=== PATIENT | male | born 1990 | race African-American/Black ===

== ENCOUNTER 2023-12-04 00:18 | Emergency (ER) | payer OTHER, SELFPAY ==
[2023-12-04 00:15] VITALS: BP 155/93; PULSE 64; RESP 16; TEMP 37.2; O2SAT 97
--- NOTE | 2023-12-04 00:22 | ECG_ITS ---
Measurements Intervals [place] Rate: 63 P: 54 MS: 156 QRS: 44 QRSD: 101 T: 30 QT: 396 QTc: 408 Interpretive Statements SINUS RHYTHM NORMAL ECG NO PREVIOUS ECG AVAILABLE FOR COMPARISON Electronically Signed On 12-04-2023 9:48:18 CDT by Tito Villatoro D.O.
[2023-12-04 00:23] VITALS: PULSE 65
--- NOTE | 2023-12-04 00:44 | ED.GENADULT ---
HPI - General Adult General Chief complaint: Arrhythmia/Palpitations Stated complaint: increased heart rate Time Seen by Provider: 12/04/23 00:38 History of Present Illness HPI narrative: This is a 33-year-old male presenting ED with chief complaint of palpitations. Patient says that he was at home when he started to feel his heart racing. He developed a feeling that something was wrong. He felt tingling his hands and feet. He then called EMS by time they arrived his symptoms had resolved. Patient says this has happened once before years ago but was not as intense. patient denies recent illness, fevers, chest pain, difficulty breathing, abdominal pain, nausea vomiting or diarrhea. At this time he feels well and is ready to go home. Related Data Allergies Allergy/AdvReac Type Severity Reaction Status Date / Time No Known Allergies Allergy Verified 12/04/23 00:22 Exam Narrative: APPEARANCE: No apparent distress. Head: atraumatic. EYES: EOMI, NOSE: Atraumatic NECK: Trachea midline RESPIRATORY: No increased rate of breathing Clear to auscultation CARDIOVASCULAR: RRR, no peripheral edema ABDOMINAL: Non-distended MUSCULOSKELETAl: No obvious deformities NEURO: Alert. Moving 4/4 extremities SKIN:: Warm, dry. Normal color PSYCHIATRIC: anxious. Course Vital Signs Vital signs: Vital Signs Temperature 98.9 F 12/04/23 00:15 Pulse Rate 64 12/04/23 00:15 Respiratory Rate 16 12/04/23 00:15 Blood Pressure 155/93 H 12/04/23 00:15 Pulse Oximetry 97 12/04/23 00:15 Oxygen Delivery Room Air 12/04/23 00:15 Temperature 98.9 F 12/04/23 00:15 Pulse Rate 65 12/04/23 00:23 Respiratory Rate 16 12/04/23 00:15 Blood Pressure 155/93 H 12/04/23 00:15 Pulse Oximetry 97 12/04/23 00:15 Oxygen Delivery Room Air 12/04/23 00:15 Medical Decision Making [facility] Narrative Medical decision making narrative: -Course: 33-year-old male presenting with a brief episode palpitations and overwhelming dread. Symptoms consistent with panic attack. At this time the patient is asymptomatic. EKG is unremarkable. Patient is comfortable going home following up primary care physician. Given return precautions. -DDX includes but is not limited to: Panic attack anxiety , cardiac dysrhythmia -Co-morbidities complicating care: seizure disorder well controlled -Independent interpretation of studies: Independent EKG interpretation: Rhythm [sinus], Rate [63], Hunter -[normal], LA -[normal], QRS [narrow], QTC [normal], T waves -[negative for concerning inversions], ST Segments - [Negative for concerning elevations] Final interpretations: [Normal Sinus Rhythm] -Shared decision making / Disposition: discharged Vital Signs Vital Signs: Vital Signs Temperature 98.9 F 12/04/23 00:15 Pulse Rate 64 12/04/23 00:15 Respiratory Rate 16 12/04/23 00:15 Blood Pressure 155/93 H 12/04/23 00:15 Pulse Oximetry 97 12/04/23 00:15 Oxygen Delivery Room Air 12/04/23 00:15 Temperature 98.9 F 12/04/23 00:15 Pulse Rate 65 12/04/23 00:23 Respiratory Rate 16 12/04/23 00:15 Blood Pressure 155/93 H 12/04/23 00:15 Pulse Oximetry 97 12/04/23 00:15 Oxygen Delivery Room Air 12/04/23 00:15 Discharge Plan Discharge Clinical Impression: Panic attack Patient Disposition: Home, Self-Care Condition: Stable Instructions: Antibiotic Form, Panic Attack (ED) Additional Instructions: Please follow-up with primary care physician below. Return you develop chest pain shortness of breath or would like re-evaluation. Follow-up/Referrals: UNKNOWN,DOCTOR [Primary Care Provider] - Roman Tineo MD [Physician] - 1 Week (Establish pcp)
[2023-12-04 01:03] VITALS: BP 123/46; PULSE 94; RESP 15; O2SAT 96
== END 2023-12-04 01:05 | disposition home or self-care (01) ==
PROVIDERS: Emergency Provider Emergency Medicine
DX: F41.0 Panic disorder [episodic paroxysmal anxiety] (principal)
CPT/HCPCS: 93005; 99284

== ENCOUNTER 2024-01-09 20:21 | Emergency (ER) | payer OTHER, SELFPAY ==
--- NOTE | ~2024-01-09 | XR_ITS ---
EXAMINATION: XR chest 2V DATE: 01/09/2024 21:49 INDICATION: Chest pain with deep breath. Shortness of breath. TECHNIQUE: Frontal and lateral views of the chest were obtained. COMPARISON: None. FINDINGS: There is no pneumonia, pleural effusion, or pneumothorax. The heart size is normal. IMPRESSION: 1. No acute cardiopulmonary disease. Reviewed, dictated and finalized at location E.
--- NOTE | ~2024-01-09 | CT_ITS ---
Clinical Indication: Dyspnea, chest pain CT Scan of the Chest with Contrast: Technique: Contiguous sections were acquired throughout the chest after intravenous administration of 100 cc of Omnipaque 350. Dose reduction technique was used on this scan by utilizing automated expos ure control and iterative reconstruction technique. The dose-length product (DLP) was 976.19 mGy-cm. Findings: There is no evidence of any significant mediastinal, hilar or axillary lymphadenopathy. There is no f illing defect in the pulmonary arterial tree to suggest pulmonary embolus. There is no evidence of ao rtic dissection or aneurysm. There is no evidence of pleural or pericardial effusion. There are several mild patchy ground glass opacities in the right lower lobe. Images through the upper abdomen reveal no abnormalities. Impression: No evidence of pulmonary embolus, aortic dissection, or aortic aneurysm. Mild patchy ground glass opacity right lower lobe, most likely infectious process. Reviewed, dictated and finalized at [facility]. Impression: No evidence of pulmonary embolus, aortic dissection, or aortic aneurysm. Mild patchy ground glass opacity right lower lobe, most likely infectious proce ss.
[2024-01-09 20:54] VITALS: BP 173/99; PULSE 108; RESP 18; TEMP 36.7; O2SAT 94
--- NOTE | 2024-01-09 20:58 | ECG_ITS ---
SEE SCANNED COPY FOR CONFIRMED REPORT MTDD
[2024-01-09 21:38] LABS: Basophils Absolute Auto 0.1 K/mm3 (0.0-0.1); Basophils Percent Auto 1.1 % (0.2-1.2); Eosinophils Absolute Auto 0.8 K/mm3 (0-0.3); Eosinophils Percent Auto 8.8 % (0-4.4); Hematocrit 48.9 % (42.0-52.0); Hemoglobin 17.3 g/dL (14.0-18.0); Immature Granulocyte Absolute 0.05 K/mm3 (0.00-0.031); Immature Granulocyte Percent A 0.5 % (0-0.5); Lymphocytes Absolute Auto 2.03 K/mm3 (0.9-3.2); Mean Corpuscular HGB Conc 35.4 g/dl (32-36); Mean Corpuscular Hemoglobin 27.9 pg (26-34); Mean Platelet Volume 10.3 fl (7.4-10.4); Monocytes Absolute Auto 0.8 K/mm3 (0.1-0.6); Monocytes Percent Auto 8.7 % (2.6-8.5); Neutrophils Absolute Auto 5.4 K/mm3 (1.3-6.7); Neutrophils Percent Auto 58.9 % (45.5-73.1); Platelet Count Result 275 k/mm3 (150-375); Red Blood Count 6.19 M/mm3 (4.6-6.20); Red Cell Distribution Width 14.8 % (11.5-14.5); White Blood Count 9.2 K/mm3 (4.5-10.0)
[2024-01-09 21:48] LABS: Alanine Aminotransferase 62 U/L (6-50); Albumin Level 4.7 g/dL (3.5-5.1); Alkaline Phosphatase 60 U/L (38-126); Anion Gap 11 mmol/L (4-12); Aspartate Amino Transferase 56 U/L (17-59); Bilirubin,Total 0.6 mg/dL (0.2-1.3); Blood Urea Nitrogen 14 mg/dL (9-20); Calcium 9.5 mg/dL (8.4-10.2); Carbon Dioxide 23 mmol/L (22-30); Chloride 107 mmol/L (98-107); Estimated CRCL calculation 112 ml/min; Estimated Glomerular Filt Rate > 60; Glucose 128 mg/dL (65-110); Lipase 316 U/L (23-300); Potassium 3.9 mmol/L (3.4-5.0); Sodium 141 mmol/L (137-145)
[2024-01-09 21:55] LABS: Prothrombin Time 13.5 Seconds (11.1-14.7)
[2024-01-09 22:04] LABS: Troponin I 0.035 ng/mL (0.000-0.034)
[2024-01-09 23:48] LABS: D Dimer < 0.27 ug/mL (<0.48)
--- NOTE | 2024-01-09 23:54 | ED.SOB ---
HPI - SOB/Dyspnea General Chief Complaint: Shortness of Breath/Dyspnea <Sherry Ortega PA-C - Last Filed: 01/10/24 02:27> Stated Complaint: sob and cp with inhalation <MELISSA Mcmanus Last Filed: 01/10/24 02:27> Time Seen by Provider: 01/09/24 23:43 <MELISSA Mcmanus Last Filed: 01/10/24 02:27> History of Present Illness HPI Narrative: 33-year-old male with reported history of childhood asthma, hypertension and seizure disorder presents to emergency department for shortness of breath and URI symptoms that started today. Patient is reporting rhinorrhea, nasal congestion, productive cough and difficulty breathing. He is reporting pleuritic central chest pain. Denies recent surgeries or hospitalizations, lower extremity edema or calf pain, history of VTE, fever, nausea vomiting, diarrhea, otalgia or sore throat, dysuria or hematuria. <Sherry Ortega PA-C - Last Filed: 01/10/24 02:27> Related Data Allergies/Adverse Reactions: Allergies Allergy/AdvReac Type Severity Reaction Status Date / Time No Known Allergies Allergy Verified 12/04/23 00:22 <MELISSA Mcmanus Last Filed: 01/10/24 02:27> Review of Systems Review of Systems: CONSTITUTIONAL: Denies fever, chills, or sweats. EYES: Denies visual changes, redness, or discharge. ENT: See HPI CARDIOVASCULAR: See HPI RESPIRATORY: See HPI GASTROINTESTINAL: Denies abdominal pain, nausea, vomiting, or diarrhea. GENITOURINARY: Denies dysuria or hematuria. SKIN: Denies rash or itching. MUSCULOSKELETAL: Denies back pain, joint pain, or myalgia. NEUROLOGIC: Denies headache, numbness, or weakness. PSYCHIATRIC: Denies anxiety or depression. <MELISSA Mcmanus Last Filed: 01/10/24 02:27> Exam Narrative: GENERAL: Well-appearing, well-nourished, and in no acute distress. HEAD: Normocephalic, atraumatic. EYES: PERRLA and EOMI. ENT: Bilateral nares congested with clear rhinorrhea. Posterior pharynx without erythema or edema. No tonsillar hypertrophy. Uvula is midline. Bilateral TMs are rivas nonbulging with normal canals. NECK: Supple. CHEST: No respiratory distress, patient is satting 94% on room air. There is expiratory wheezing throughout all shafer. HEART: Regular rate and rhythm. No murmur heard. Normal peripheral pulses. ABDOMEN: Soft, nontender, nondistended, normal active bowel sounds. EXTREMITIES: Normal range of motion. No edema. Negative Homans bilaterally. SKIN: Warm, dry, no rash. NEURO: No focal deficits. 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 <Isha Oleary MD - Last Filed: 01/10/24 08:17> Vital Signs Vital signs: Vital Signs Temperature 98.0 F 01/09/24 20:54 Pulse Rate 108 H 01/09/24 20:54 Respiratory Rate 18 01/09/24 20:54 Blood Pressure 173/99 H 01/09/24 20:54 Pulse Oximetry 94 01/09/24 20:54 Oxygen Delivery Room Air 01/09/24 20:54 Temperature 98.0 F 01/09/24 20:54 Pulse Rate 74 01/10/24 03:02 Respiratory Rate 18 01/10/24 03:02 Blood Pressure 142/82 H 01/10/24 03:02 Pulse Oximetry 95 01/10/24 03:02 Oxygen Delivery Room Air 01/10/24 00:20 <Sherry Ortega PA-C - Last Filed: 01/10/24 02:27> Vital Signs Temperature 98.0 F 01/09/24 20:54 Pulse Rate 108 H 01/09/24 20:54 Respiratory Rate 18 01/09/24 20:54 Blood Pressure 173/99 H 01/09/24 20:54 Pulse Oximetry 94 01/09/24 20:54 Oxygen Delivery Room Air 01/09/24 20:54 Temperature 98.0 F 01/09/24 20:54 Pulse Rate 74 01/10/24 03:02 Respiratory Rate 18 01/10/24 03:02 Blood Pressure 142/82 H 01/10/24 03:02 Pulse Oximetry 95 01/10/24 03:02 Oxygen Delivery Room Air 01/10/24 00:20 <Isha Oleary MD - Last Filed: 01/10/24 08:17> MDM - SOB/Dyspnea MDM Narr
[2024-01-10] VITALS (11 sets, daily range): BP systolic 132–159; BP diastolic 75–103; PULSE 74–107; RESP 18–20; O2SAT 91–95
[2024-01-10] MEDS: IPRATROPIUM 0.5 MG/ALBUTEROL SULFATE 2.5 MG AMPUL.NEB 3 ML INHALATION (00:11)
[2024-01-10] MEDS: ASPIRIN 81 MG CHEWABLE TABLET 324 MG PO (00:18)
[2024-01-10 00:47] LABS: Troponin I 0.037 ng/mL (0.000-0.034)
[2024-01-10 00:48] LABS: Influenza A QL RT-PCR Negative (Negative); Influenza B QL RT-PCR Negative (Negative); RSV RNA, RT-PCR Negative (Negative); SARS-CoV-2 RNA PCR Negative (Negative)
[2024-01-10] MEDS: methylPREDNISolone SOD SUCC 125 MG VIAL IV PUSH (03:12)
[2024-01-10] MEDS: AZITHROMYCIN 250 MG TABLET 500 MG PO (03:12)
[2024-01-10] MEDS: AMOXICILLIN/CLAVULANATE K 875-125 MG TAB 1 TABLET PO (03:12)
== END 2024-01-10 03:20 | disposition home or self-care (01) ==
PROVIDERS: Emergency Medicine; Emergency Provider Physician Assistant
DX: J18.9 Pneumonia, unspecified organism (principal); J45.901 Unspecified asthma with (acute) exacerbation; Z20.822 Contact with and (suspected) exposure to COVID-19; I10 Essential (primary) hypertension; G40.909 Epilepsy, unspecified, not intractable, without status epilepticus; R00.0 Tachycardia, unspecified; R94.31 Abnormal electrocardiogram [ECG] [EKG]
CPT/HCPCS: 36415; 71046; 71275; 80053; 83690; 84484; 85025; 85380; 85610; 85730; 87637; 93005; 94640; 96374; 99284; A9270; J2919; Q9967

== ENCOUNTER 2024-01-19 12:07 | Emergency (ER) | payer OTHER, SELFPAY ==
--- NOTE | ~2024-01-19 | XR_ITS ---
EXAMINATION: XR shoulder RT min 2V DATE: 01/19/2024 14:46 INDICATION: Right shoulder pain. TECHNIQUE: 5 views of right shoulder were obtained. COMPARISON: None. FINDINGS: Bone alignment is normal. No fracture. There is severe osteoarthritis of glenohumeral joint and mild osteoarthritis of acromioclavicular joint. IMPRESSION: 1. Severe glenohumeral joint osteoarthritis. Reviewed, dictated and finalized at location E.
[2024-01-19 12:18] VITALS: BP 167/103; PULSE 96; RESP 18; TEMP 36.4; O2SAT 99
--- NOTE | 2024-01-19 14:03 | ED.SEIZURE ---
HPI - Seizure General Chief Complaint: Seizure Stated Complaint: I had a seizure last night Time Seen by Provider: 01/19/24 13:44 History of Present Illness HPI Narrative: Patient is a 34-year-old male with history of hypertension, seizures, takes Keppra here after concerns for a seizure overnight last night. Patient states that he woke up this morning with some pain in his right shoulder as well as the feeling as though he bit his tongue overnight. Denies bowel or bladder incontinence. He notes a long history of seizures, is supposed to be taking Keppra, believes it is 500 mg daily. Typically they always occur in his sleep. He spoke with his primary care doctor this morning who advised to come into the emergency department for further evaluation and to be cleared to be returned to work. Patient notes that he has not taken his Keppra in about 2 weeks because he was prescribed antibiotics for pneumonia and the combination of the 2 medications made him ?feel weird ?. He typically has a seizure maybe once a year, however he believes his last seizure was approximately 4 years ago. He denies falling out of bed, any trauma. Related Data Allergies Allergy/AdvReac Type Severity Reaction Status Date / Time No Known Allergies Allergy Verified 01/19/24 12:07 Review of Systems Review of Systems: All systems reviewed & are unremarkable except as noted in HPI and below Exam Narrative: GENERAL: Well-appearing, well-nourished, and in no acute distress. HEAD: Normocephalic, atraumatic. EYES: PERRLA and EOMI. ENT: Nares clear. Mucous membranes moist. Bruising noted to bilateral tongue consistent with tongue biting, no laceration appreciated. NECK: Supple. CHEST: Clear to auscultation. No respiratory distress. HEART: Regular rate and rhythm. Normal peripheral pulses. ABDOMEN: Soft, nontender, nondistended. EXTREMITIES: Tenderness to the anterior right shoulder with mild decreased abduction beyond 90?. Obvious deformity, normal sensation throughout arm with a strong radial pulse. SKIN: Warm, dry, no rash. NEURO: No focal deficits. Alert and oriented x3. PSYCH: Normal mood and affect. Course Course Emergency Course: Chart review performed. Patient here after having a seizure in his sleep last night. History of seizures. Triage vitals show HTN, otherwise normal. No prior visits for seizures in our system. Patient seen evaluated, concern for possible seizure overnight in his sleep, no associated trauma, will do x-ray to ensure he did not have a dislocation injury during the seizure. He did not follow bed. I suspect his seizure likely due to medication non adherence of his Keppra as he has not taken in 2 weeks. Will do basic lab work, x-ray of shoulder, touch base with his primary care doctor regarding return for work precautions. Lab work and imaging reviewed. Workup grossly unremarkable. Spoke with Dr. Tineo, due to seizure he feels uncomfortable releasing him to work, requesting neurology to release him to work. Advised we do not have neurology on our schedule today to even discuss the case with. Will give patient referral to neurology outpatient for evaluation and clearance for return to work. The results of pertinent diagnostic studies and exam findings were discussed. The patient?s provisional diagnosis and plan of care were discussed with the patient and present family. The patient and/or present family expressed understanding of the diagnosis and plan. The nurse was instructed to provide written instructions and appropriate follow-up information. The patient understands their need and responsibility to obtain additional follow-up as instructed. The risks of medications administered and prescribed were discussed with the patient and family present. Vital Signs Vital signs: Vital Signs Temperature 97.6 F 01/19/24 12:18 Pulse Rate 96 01/19/24 12:18 Respiratory Rate 18 01/19/24 12:18 Blood Pressure 167/103 H 01/19/24 12:18 Pul
--- NOTE | 2024-01-19 14:04 | ECG_ITS ---
SEE SCANNED COPY FOR CONFIRMED REPORT MTDD
[2024-01-19 14:45] LABS: Basophils Percent Auto 0.4 % (0.2-1.2); Eosinophils Absolute Auto 0.1 K/mm3 (0-0.3); Eosinophils Percent Auto 0.7 % (0-4.4); Hematocrit 50.3 % (42.0-52.0); Hemoglobin 17.7 g/dL (14.0-18.0); Immature Granulocyte Absolute 0.14 K/mm3 (0.00-0.031); Immature Granulocyte Percent A 1.3 % (0-0.5); Lymphocytes Absolute Auto 1.79 K/mm3 (0.9-3.2); Lymphocytes Percent Auto 16.7 % (18.3-44.2); Mean Corpuscular HGB Conc 35.2 g/dl (32-36); Mean Corpuscular Hemoglobin 27.9 pg (26-34); Mean Corpuscular Volume 79.3 fl (80-100); Mean Platelet Volume 9.6 fl (7.4-10.4); Monocytes Absolute Auto 0.8 K/mm3 (0.1-0.6); Monocytes Percent Auto 7.7 % (2.6-8.5); Neutrophils Absolute Auto 7.9 K/mm3 (1.3-6.7); Neutrophils Percent Auto 73.2 % (45.5-73.1); Platelet Count Result 272 k/mm3 (150-375); Red Blood Count 6.34 M/mm3 (4.6-6.20); White Blood Count 10.8 K/mm3 (4.5-10.0)
[2024-01-19] MEDS: levETIRAcetam 500 MG TABLET PO (15:00)
[2024-01-19 15:01] LABS: Alanine Aminotransferase 73 U/L (6-50); Albumin Level 4.7 g/dL (3.5-5.1); Alkaline Phosphatase 73 U/L (38-126); Anion Gap 8 mmol/L (4-12); Aspartate Amino Transferase 60 U/L (17-59); Blood Urea Nitrogen 11 mg/dL (9-20); Calcium 9.2 mg/dL (8.4-10.2); Carbon Dioxide 27 mmol/L (22-30); Chloride 102 mmol/L (98-107); Estimated CRCL calculation 122 ml/min; Estimated Glomerular Filt Rate > 60; Glucose 92 mg/dL (65-110); Potassium 4.2 mmol/L (3.4-5.0); Sodium 137 mmol/L (137-145)
[2024-01-19 15:30] VITALS: BP 159/89; PULSE 88; RESP 16; O2SAT 98
== END 2024-01-19 16:13 | disposition home or self-care (01) ==
PROVIDERS: Emergency Provider Student in an Organized Health Care Education/Training Program
DX: G40.909 Epilepsy, unspecified, not intractable, without status epilepticus (principal); S49.91XA Unspecified injury of right shoulder and upper arm, initial encounter; T42.6X6A Underdosing of other antiepileptic and sedative-hypnotic drugs, initial encounter; Z91.128 Patient's intentional underdosing of medication regimen for other reason; I10 Essential (primary) hypertension; X58.XXXA Exposure to other specified factors, initial encounter
CPT/HCPCS: 36415; 73030; 80053; 85025; 93005; 99283; A9270

== ENCOUNTER 2024-02-26 01:23 | Emergency (ER) | payer SELFPAY ==
[2024-02-26] VITALS (32 sets, daily range): BP systolic 130–155; BP diastolic 80–97; PULSE 68–111; RESP 11–26; TEMP 36.6; O2SAT 93–100
--- NOTE | ~2024-02-26 | XR_ITS ---
EXAMINATION: XR chest 1V portable 02/26/2024 01:59 INDICATION: Chest pain. Rapid heart rate. PROCEDURE: AP portable chest COMPARISON: 01/09/2024 FINDINGS: The lungs are clear. The cardiomediastinal silhouette is within normal limits. There are no pleural effusions. There is no pneumothorax suspected. IMPRESSION: 1: NO ACUTE CARDIOPULMONARY DISEASE. Reviewed, dictated and finalized at location B.
--- NOTE | 2024-02-26 01:24 | ECG_ITS ---
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 Measurements Intervals [place] Rate: 75 P: 58 FL: 150 QRS: 51 QRSD: 92 T: 32 QT: 364 QTc: 408 Interpretive Statements SINUS RHYTHM No previous ECG available for comparison Electronically Signed On 02-26-2024 12:08:01 CDT by Ericka Lyon M.D.
[2024-02-26 01:39] LABS: Basophils Absolute Auto 0.1 K/mm3 (0.0-0.1); Basophils Percent Auto 0.6 % (0.2-1.2); Eosinophils Absolute Auto 0.7 K/mm3 (0-0.3); Eosinophils Percent Auto 8.7 % (0-4.4); Hematocrit 45.2 % (42.0-52.0); Hemoglobin 16.2 g/dL (14.0-18.0); Immature Granulocyte Absolute 0.04 K/mm3 (0.00-0.031); Immature Granulocyte Percent A 0.5 % (0-0.5); Lymphocytes Absolute Auto 2.36 K/mm3 (0.9-3.2); Lymphocytes Percent Auto 30.3 % (18.3-44.2); Mean Corpuscular HGB Conc 35.8 g/dl (32-36); Mean Corpuscular Hemoglobin 28.3 pg (26-34); Mean Platelet Volume 10.6 fl (7.4-10.4); Monocytes Absolute Auto 0.6 K/mm3 (0.1-0.6); Monocytes Percent Auto 7.6 % (2.6-8.5); Neutrophils Absolute Auto 4.1 K/mm3 (1.3-6.7); Neutrophils Percent Auto 52.3 % (45.5-73.1); Platelet Count Result 248 k/mm3 (150-375); Red Blood Count 5.72 M/mm3 (4.6-6.20); Red Cell Distribution Width 14.4 % (11.5-14.5); White Blood Count 7.8 K/mm3 (4.5-10.0)
--- NOTE | 2024-02-26 01:51 | ED.GENADULT ---
HPI - General Adult General Chief complaint: Chest Pain Stated complaint: Chest pain, high heart rate Time Seen by Provider: 02/26/24 01:28 History of Present Illness HPI narrative: patient 54-year-old gentleman who presents emergency department with chief complaint of palpitations. The patient reports this evening he had a episode lasted for couple minutes of his heart beating fast the patient states that is subsequently resolved patient states it woke him up the patient denies chest pain reports that he has not had an episode like this happen before. The patient does report that he has history of sleep apnea but does not use a CPAP. Related Data Allergies Allergy/AdvReac Type Severity Reaction Status Date / Time No Known Allergies Allergy Verified 02/26/24 01:30 Review of Systems Review of Systems: A 10 system review of systems was completed on the patient and is negative except for what is stated in the HPI. Nursing and ancillary documentation was reviewed. Exam Narrative: GENERAL: Well-appearing, well-nourished, and in no acute distress. HEAD: Normocephalic, atraumatic. EYES: PERRLA and EOMI. ENT: Nares clear, no rhinorrhea or epistaxis. Mucous membranes moist. NECK: Supple. CHEST: Clear to auscultation. No respiratory distress. HEART: Regular rate and rhythm. No murmur heard. Normal peripheral pulses. ABDOMEN: Soft, nontender, nondistended, normal active bowel sounds. EXTREMITIES: Normal range of motion. No edema. SKIN: Warm, dry, no rash. NEURO: No focal deficits. Alert and oriented x3. PSYCH: Normal mood and affect. Course Vital Signs Vital signs: Vital Signs Temperature 36.6 C 02/26/24 01:27 Pulse Rate 84 02/26/24 01:27 Respiratory Rate 20 02/26/24 01:27 Blood Pressure 146/93 H 02/26/24 01:27 Pulse Oximetry 97 02/26/24 01:27 Oxygen Delivery Room Air 02/26/24 01:27 Temperature 36.6 C 02/26/24 01:27 Pulse Rate 80 02/26/24 04:29 Respiratory Rate 15 02/26/24 04:29 Blood Pressure 135/83 02/26/24 04:29 Pulse Oximetry 97 02/26/24 04:29 Oxygen Delivery Room Air 02/26/24 01:31 Medical Decision Making [facility] Narrative Medical decision making narrative: differential diagnosis includes electrolyte abnormality, dysrhythmia, ACS, electrolyte abnormalities CBC was within normal limits electrolytes are within normal limits troponin was 0.0 7:10 p.m. 3 hour was 0.022 EKG showed no acute ischemic changes chest x-ray showed no focal infiltrate or pneumothorax magnesium was 1.7 the patient was given 2 g of magnesium Vital Signs Vital Signs: Vital Signs Temperature 36.6 C 02/26/24 01:27 Pulse Rate 84 02/26/24 01:27 Respiratory Rate 20 02/26/24 01:27 Blood Pressure 146/93 H 02/26/24 01:27 Pulse Oximetry 97 02/26/24 01:27 Oxygen Delivery Room Air 02/26/24 01:27 Temperature 36.6 C 02/26/24 01:27 Pulse Rate 80 02/26/24 04:29 Respiratory Rate 15 02/26/24 04:29 Blood Pressure 135/83 02/26/24 04:29 Pulse Oximetry 97 02/26/24 04:29 Oxygen Delivery Room Air 02/26/24 01:31 Lab Data 02/26/24 01:33 02/26/24 01:33 Labs: Lab Results 02/26/24 02/26/24 Range/Units 01:33 04:25 WBC 7.8 (4.5-10.0) K/mm3 RBC 5.72 (4.6-6.20) M/mm3 Hgb 16.2 (14.0-18.0) g/dL Hct 45.2 (42.0-52.0) % MCV 79.0 L (80-100) fl MCH 28.3 (26-34) pg MCHC 35.8 (32-36) g/dl RDW 14.4 (11.5-14.5) % Plt Count 248 (150-375) k/mm3 MPV 10.6 H (7.4-10.4) fl Immature Gran % (Auto) 0.5 (0-0.5) % Neut % (Auto) 52.3 (45.5-73.1) % Lymph % (Auto) 30.3 (18.3-44.2) % Cooper % (Auto) 7.6 (2.6-8.5) % Eos % (Auto) 8.7 H (0-4.4) % Baso % (Auto) 0.6 (0.2-1.2) % Lymph # (Auto) 2.36 (0.9-3.2) K/mm3 Cooper # (Auto) 0.6 (0.1-0.6) K/mm3 Eos # (Auto) 0.7 H (0-0.3) K/mm3 Baso # (Auto) 0.1 (0.0-0.1) K/mm3 Abs Immat Gran (auto) 0.04 H (0.00-0.031) K/
[2024-02-26 01:54] LABS: Alanine Aminotransferase 66 U/L (6-50); Albumin Level 4.5 g/dL (3.5-5.1); Alkaline Phosphatase 68 U/L (38-126); Anion Gap 10 mmol/L (4-12); Aspartate Amino Transferase 66 U/L (17-59); Bilirubin,Total 0.7 mg/dL (0.2-1.3); Blood Urea Nitrogen 14 mg/dL (9-20); Calcium 8.7 mg/dL (8.4-10.2); Carbon Dioxide 24 mmol/L (22-30); Chloride 105 mmol/L (98-107); Glucose 147 mg/dL (65-110); Lipase 359 U/L (23-300); Magnesium 1.7 mg/dL (1.6-2.3); Potassium 3.8 mmol/L (3.4-5.0); Sodium 139 mmol/L (137-145)
[2024-02-26 01:55] LABS: INR 0.9; Prothrombin Time 12.6 Seconds (11.1-14.7)
[2024-02-26 01:56] LABS: Partial Thromboplastin Time 32.3 Seconds (22.3-36.8)
[2024-02-26 02:05] LABS: Troponin I 0.019 ng/mL (0.000-0.034)
[2024-02-26] MEDS: MAGNESIUM SULF 2 GM/WATER 50ML 2 GM/50 ML BAG IVPB (03:01)
[2024-02-26 04:54] LABS: Troponin I 0.022 ng/mL (0.000-0.034)
== END 2024-02-26 05:25 | disposition home or self-care (01) ==
PROVIDERS: Emergency Provider Emergency Medicine
DX: R00.2 Palpitations (principal); E83.42 Hypomagnesemia
CPT/HCPCS: 36415; 71045; 80053; 83690; 83735; 84484; 85025; 85610; 85730; 93005; 96365; 96366; 99284; J3475

== ENCOUNTER 2024-11-04 04:54 | Observation (INO) | payer SELFPAY ==
[2024-11-04] VITALS (13 sets, daily range): BP systolic 122–167; BP diastolic 72–98; PULSE 77–102; RESP 18–24; TEMP 36.6–36.9; O2SAT 94–100; BMI 52.2
--- NOTE | ~2024-11-04 | XR_ITS ---
EXAMINATION: XR chest 1V DATE: 11/04/2024 05:56 INDICATION: Shortness of breath TECHNIQUE: frontal view of the chest was obtained. COMPARISON: Chest radiograph dated 02/26/2024 FINDINGS: No focal airspace opacities, pulmonary edema, pleural effusion or pneumothorax. The cardiomediastinal silhouette is normal. Visualized bones and soft tissues are unremarkable. IMPRESSION: 1. No acute cardiopulmonary disease. Reviewed, dictated and finalized at location A. UCTION CONTROL TECHNOLOGIST
--- NOTE | ~2024-11-04 | XR_ITS ---
EXAMINATION: XR shoulder LT min 2V DATE: 11/04/2024 05:56 INDICATION: Possible shoulder dislocation/relocation TECHNIQUE: AP internally and externally rotated, AP oblique externally rotated and transscapular Y vi ews of the left shoulder were obtained. COMPARISON: None FINDINGS: Normal alignment. Age-indeterminate likely Hill-Sachs fracture trough at the posterolateral aspect of the humeral head. No other lesions suspicious for fracture identified. Glenohumeral joint is normal. Mild osteoarthritis with small inferiorly directed osteophytes at the acromioclavicular joint. Soft tissues are unremarkable. IMPRESSION: Normal alignment with age-indeterminate likely Hill-Sachs fracture trough at the posterolateral humer al head suggesting prior dislocation/relocation. Reviewed, dictated and finalized at location A. ER AND CASHIER IMPRESSION: Normal alignment with age-indeterminate likely Hill-Sachs fracture trough at th e posterolateral humeral head suggesting prior dislocation/relocation.
--- NOTE | ~2024-11-04 | CT_ITS ---
EXAMINATION: CTA chest PE protocol DATE: 11/04/2024 07:33 INDICATION: Shortness of breath. Elevated d-dimer. TECHNIQUE: Computed tomography (CT) pulmonary angiogram of the chest was performed with 100 mL Omnipa que-350 intravenous contrast. Additional 3D reconstructions utilizing coronal maximum intensity proje ction (MIP) were performed. Automated exposure control and iterative reconstruction technique were em ployed. The dose-length product was 1180.77 mGy-cm. COMPARISON: 01/10/2024 FINDINGS: No pulmonary embolism. There are mild patchy groundglass opacities at the apical and posterior right upper lobe. No pleural effusion or pneumothorax. Heart size is normal. No pericardial effusion. Thora cic aorta is normal in caliber with no dissection. No pathologically enlarged thoracic lymphadenopath y. Diffuse hepatic steatosis. Chronic appearing mild superior endplate compression fracture a few lev els in the midthoracic spine. IMPRESSION: 1. No pulmonary embolism. 2. Mild groundglass opacities in the right upper lobe which could represent atelectasis, pneumonia or mild pulmonary edema. Reviewed, dictated and finalized at location A. HPIECE MAKER IMPRESSION: 1. No pulmonary embolism. 2. Mild groundglass opacities in the right upper lobe which could represent ate lectasis, pneumonia or mild pulmonary edema.
--- OUTSIDE RECORDS SUMMARY | 2024-11-04 04:56 | XMS_ITS | CONTINUITY OF CARE DOCUMENT ---
Author Name elenamikyeric Address Unknown Organization [facility] Address [address] [place] [address] [address] [place] [address] Phone [phone] Care Team Providers Care Geospatial Engineer Name Role Phone Farzad King MD Unavailable EEMLYN PURCELL MD Unavailable [phone] EMELYN PURCELL MD Unavailable [phone] INS[employer]ANCE PROVID[employer] Payer name Policy type / Coverage type [place] red democr[employer] ID [facility] [id number] Other [id number]
--- NOTE | 2024-11-04 05:03 | ECG_ITS ---
Test Date: 2024-11-04 05:08:21 Measurements Intervals [place] Rate: 93 P: 61 CT: 159 QRS: 51 QRSD: 90 T: 44 QT: 336 QTc: 419 Interpretive Statements SINUS RHYTHM MINIMAL Q WAVS- INFERIOR LEADS BASELINE WANDER- V4-V6 BORDERLINE ECG Compared to ECG 02/26/2024 01:28:40 No significant changes Electronically Signed On 11-04-2024 07:51:19 DITCHER by Tito Villatoro D.O.
--- NOTE | 2024-11-04 05:04 | ED_ITS ---
HPI - Seizure General Chief Complaint: Seizure Stated Complaint: SEIZURE, DISLOCATED SHOULDER, SOB Time Seen by Provider: 11/04/24 05:01 Source: patient Mode of arrival: ambulatory Limitations: no limitations History of Present Illness HPI Narrative: Patient reports having a seizure in his sleep prior to arrival. He was incontinent of urine and bit his tongue. He knew he had a seizure because of these things as well as the fact he woke up confused. He has a history of seizure disorder for which he is supposed to take 1500 mg b.i.d. of his Keppra but a) he was running low on his prescription and b) he does not like the side effects of this medication when he takes a full-strength. This is previously prescribed by a neurologist back in [place]. He also believes he dislocated his shoulder in his sleep because he woke up with extreme pain and felt a lump. He watched a Youtube video and put it back in place at home and took a shower to clean up from the urine prior to coming to the emergency department. He states his tongue is sore and is having some shortness of breath as well as myalgias/generalized pain though prior to going to bed had been in his baseline state of health. Patient denies any underlying respiratory conditions. He does not smoke. 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 Exam 2 Narrative: GENERAL: Well-appearing, well-nourished, and in no acute distress. HEAD: Normocephalic, atraumatic. EYES: Non injected, non icteric ENT: Nares clear, no rhinorrhea or epistaxis. Mild superficial tongue trauma bilaterally, no active bleeding. NECK: Supple. CHEST: Speaking in full sentences. No respiratory distress. Lungs clear to auscultation bilaterally without appreciable crackles/wheezes. HEART: Regular rate and rhythm. ABDOMEN: Soft, nondistended. Obese. EXTREMITIES: Normal range of motion. No lower extremity edema. Shoulders grossly symmetric and does not appear dislocated at this time. SKIN: Warm, dry, no rash. NEURO: No focal deficits. Alert and oriented x3. Sensation intact to touch in left upper extremity including over deltoid/axillary nerve. No abnormal movements appreciated. PSYCH: Normal mood and affect. Course Vital Signs Vital signs: Vital Signs Pulse Oximetry 94 11/04/24 06:03 Oxygen Delivery Room Air 11/04/24 06:03 Temperature 98 F 11/04/24 06:05 Pulse Rate 90 11/04/24 08:50 Respiratory Rate 20 11/04/24 08:50 Blood Pressure 167/98 H 11/04/24 08:50 Pulse Oximetry 96 11/04/24 08:50 Oxygen Delivery Room Air 11/04/24 06:03 MDM - Seizure MDM Narrative Medical decision making narrative: Patient presents with report of concern for having a seizure. History of seizures for which he is supposed to be taking 1500 mg BID but he has been taking 500mg as a dose due to a) running low and b) not really liking the side effect profile. Woke up confused, incontinence of urine, and with mild tongue trauma. He also had dislocated his left shoulder which he relocated prior to arrival. He is now experiencing shortness of breath in addition to his left shoulder pain and some other body aches. No underlying respiratory conditions. In the emergency department they are afebrile with vital signs within normal limits, though technically borderline tachycardic. Seizure precautions ordered. Patient has AST and ALT elevations which have been previously appreciated. Patient has an elevated troponin. Aspirin ordered as is 3 hour troponin. Patient continues to be short of breath. He denies any chest pain. Lungs are still clear on auscultation. He states he took 500 mg Keppra p.o. prior to arrival. Given that his dose is meant to be 1500 b.i.d., will give an additional 1000. Will need to be admitted for NSTEMI. Had already taken aspirin prior to arrival. Dimer > 1 so will proceed with CTA to assess or PE. Patient was able to successfully relocate his shoulder after presumed dislocation by report [facility] fracture imaging. Patient placed in sling and will need follow-up with a surgery in outpatient setting. Discussed with Dr Leung who does recommend dose of ceftriaxone and azithromycin for CT findings of ground glass opacities. Lab Data Attestation: I reviewed the patient's lab results. 11/04/24 05:18 11/04/24 05:18 Labs: Lab Results 11/04/24 11/04/24 11/04/24 Range/Units 05:18 05:18 05:18 WBC 9.4 (4.5-10.0) K/mm3 RBC 5.52 (4.6-6.20) M/mm3 Hgb 15.4 (14.0-18.0) g/dL Hct 43.3 (42.0-52.0) % MCV 78.4 L (80-100) fl MCH 27.9 (26-34) pg MCHC 35.6 (32-36) g/dl RDW 13.7 (11.5-14.5) % Plt Count 225 (150-375) k/mm3 MPV 10.6 H (7.4-10.4) fl Immature Gran % (Auto) 1.4 H (0-0.5) % Neut % (Auto) 74.5 H (45.5-73.1) % Lymph % (Auto) 14.4 L (18.3-44.2) % [place] % (Auto) 8.4 (2.6-8.5) % Eos % (Auto) 0.9 (0-4.4) % Baso % (Auto) 0.4 (0.2-1.2) % Lymph # (Auto) 1.35 (0.9-3.2) K/mm3 [place] # (Auto) 0.8 H (0.1-0.6) K/mm3 Eos # (Auto) 0.1 (0-0.3) K/mm3 Baso # (Auto) 0.0 (0.0-0.1) K/mm3 Abs Immat Gran (auto) 0.13 H (0.00-0.031) K/mm3 Absolute Neuts (auto) 7.0 H (1.3-6.7) K/mm3 Absolute Nucleated RBC 0.000 (0.0-0.012) K/mm3 Nucleated RBC % 0.0 (0.0-0.2) % D-Dimer 1.01 H (<0.48) ug/mL Sodium Cancelled 137 Potassium Cancelled 4.2 Chloride Cancelled Carbon Dioxide Anion Gap BUN Creatinine Estim Creat Clear Calc Estimated GFR Glucose Lactic Acid (0.7-2.0) mmol/L Calcium Total Bilirubin AST ALT Alkaline Phosphatase Troponin I (0.000-0.034) ng/mL NT-Pro-B Natriuret Pep (19.9-100) pg/mL Total Protein Albumin Urine Color (Yellow) Urine Appearance (Clear) Urine pH (5.0-9.0) Ur Specific [place] (1.001-1.035) Urine Protein (Negative) mg/dL Urine Glucose (UA) (Negative) mg/dL Urine Ketones (Negative) mg/dL Ur Blood (Man) (Negative) Urine Nitrate (Negative) Urine Bilirubin (Negative) Urine Urobilinogen (<2.0) mg/dL Leukocyte Esterase Rfl (Negative) JENNI/UL Urine RBC (0-2) /hpf Urine WBC (0-3) /hpf Ur Squamous Epith Cells (Few) /hpf Urine Bacteria /hpf Urine Casts Urine Opiates Screen (Negative) Urine Methadone Screen (Negative) Ur Barbiturates Screen (Negative) Levetiracetam Ur Phencyclidine Scrn (Negative) Ur Amphetamine Screen (Negative) U Benzodiazepines Scrn (Negative) Urine Cocaine Screen (Negative) U Cannabinoids Screen (Negative) Influenza A (RT-PCR) (Negative) Influenza B (RT-PCR) (Negative) RSV (RT-PCR) (Negative) SARS-CoV-2 RNA (RT-PCR) (Negative) 11/04/24 11/04/24 11/04/24 Range/Units 05:18 05:18 05:18 WBC (4.5-10.0) K/mm3 RBC (4.6-6.20) M/mm3 Hgb (14.0-18.0) g/dL Hct (42.0-52.0) % MCV (80-100) fl MCH (26-34) pg MCHC (32-36) g/dl RDW (11.5-14.5) % Plt Count (150-375) k/mm3 MPV (7.4-10.4) fl Immature Gran % (Auto) (0-0.5) % Neut % (Auto) (45.5-73.1) % Lymph % (Auto) (18.3-44.2) % [place] % (Auto) (2.6-8.5) % Eos % (Auto) (0-4.4) % Baso % (Auto) (0.2-1.2) % Lymph # (Auto) (0.9-3.2) K/mm3 [place] # (Auto) (0.1-0.6) K/mm3 Eos # (Auto) (0-0.3) K/mm3 Baso # (Auto) (0.0-0.1) K/mm3 Abs Immat Gran (auto) (0.00-0.031) K/mm3 Absolute Neuts (auto) (1.3-6.7) K/mm3 Absolute Nucleated RBC (0.0-0.012) K/mm3 Nucleated RBC % (0.0-0.2) % D-Dimer (<0.48) ug/mL Sodium Potassium Chloride 107 Carbon Dioxide Cancelled 21 L Anion Gap Cancelled 9 BUN Cancelled Creatinine Estim Creat Clear Calc Estimated GFR Glucose Lactic Acid (0.7-2.0) mmol/L Calcium Total Bilirubin AST ALT Alkaline Phosphatase Troponin I (0.000-0.034) ng/mL NT-Pro-B Natriuret Pep (19.9-100) pg/mL Total Protein Albumin Urine Color (Yellow) Urine Appearance (Clear) Urine pH (5.0-9.0) Ur Specific [place] (1.001-1.035) Urine Protein (Negative) mg/dL Urine Glucose (UA) (Negative) mg/dL Urine Ketones (Negative) mg/dL Ur Blood (Man) (Negative) Urine Nitrate (Negative) Urine Bilirubin (Negative) Urine Urobilinogen (<2.0) mg/dL Leukocyte Esterase Rfl (Negative) JENNI/UL Urine RBC (0-2) /hpf Urine WBC (0-3) /hpf Ur Squamous Epith Cells (Few) /hpf Urine Bacteria /hpf Urine Casts Urine Opiates Screen (Negative) Urine Methadone Screen (Negative) Ur Barbiturates Screen (Negative) Levetiracetam Ur Phencyclidine Scrn (Negative) Ur Amphetamine Screen (Negative) U Benzodiazepines Scrn (Negative) Urine Cocaine Screen (Negative) U Cannabinoids Screen (Negative) Influenza A (RT-PCR) (Negative) Influenza B (RT-PCR) (Negative) RSV (RT-PCR) (Negative) SARS-CoV-2 RNA (RT-PCR) (Negative) 11/04/24 11/04/24 11/04/24 Range/Units 05:18 05:18 05:18 WBC (4.5-10.0) K/mm3 RBC (4.6-6.20) M/mm3 Hgb (14.0-18.0) g/dL Hct (42.0-52.0) % MCV (80-100) fl MCH (26-34) pg MCHC (32-36) g/dl RDW (11.5-14.5) % Plt Count (150-375) k/mm3 MPV (7.4-10.4) fl Immature Gran % (Auto) (0-0.5) % Neut % (Auto) (45.5-73.1) % Lymph % (Auto) (18.3-44.2) % [place] % (Auto) (2.6-8.5) % Eos % (Auto) (0-4.4) % Baso % (Auto) (0.2-1.2) % Lymph # (Auto) (0.9-3.2) K/mm3 [place] # (Auto) (0.1-0.6) K/mm3 Eos # (Auto) (0-0.3) K/mm3 Baso # (Auto) (0.0-0.1) K/mm3 Abs Immat Gran (auto) (0.00-0.031) K/mm3 Absolute Neuts (auto) (1.3-6.7) K/mm3 Absolute Nucleated RBC (0.0-0.012) K/mm3 Nucleated RBC % (0.0-0.2) % D-Dimer (<0.48) ug/mL Sodium Potassium Chloride Carbon Dioxide Anion Gap BUN 12 Creatinine Cancelled 1.01 Estim Creat Clear Calc Cancelled 141 Estimated GFR Cancelled Glucose Lactic Acid (0.7-2.0) mmol/L Calcium Total Bilirubin AST ALT Alkaline Phosphatase Troponin I (0.000-0.034) ng/mL NT-Pro-B Natriuret Pep (19.9-100) pg/mL Total Protein Albumin Urine Color (Yellow) Urine Appearance (Clear) Urine pH (5.0-9.0) Ur Specific [place] (1.001-1.035) Urine Protein (Negative) mg/dL Urine Glucose (UA) (Negative) mg/dL Urine Ketones (Negative) mg/dL Ur Blood (Man) (Negative) Urine Nitrate (Negative) Urine Bilirubin (Negative) Urine Urobilinogen (<2.0) mg/dL Leukocyte Esterase Rfl (Negative) JENNI/UL Urine RBC (0-2) /hpf Urine WBC (0-3) /hpf Ur Squamous Epith Cells (Few) /hpf Urine Bacteria /hpf Urine Casts Urine Opiates Screen (Negative) Urine Methadone Screen (Negative) Ur Barbiturates Screen (Negative) Levetiracetam Ur Phencyclidine Scrn (Negative) Ur Amphetamine Screen (Negative) U Benzodiazepines Scrn (Negative) Urine Cocaine Screen (Negative) U Cannabinoids Screen (Negative) Influenza A (RT-PCR) (Negative) Influenza B (RT-PCR) (Negative) RSV (RT-PCR) (Negative) SARS-CoV-2 RNA (RT-PCR) (Negative) 11/04/24 11/04/24 11/04/24 Range/Units 05:18 05:18 05:18 WBC (4.5-10.0) K/mm3 RBC (4.6-6.20) M/mm3 Hgb (14.0-18.0) g/dL Hct (42.0-52.0) % MCV (80-100) fl MCH (26-34) pg MCHC (32-36) g/dl RDW (11.5-14.5) % Plt Count (150-375) k/mm3 MPV (7.4-10.4) fl Immature Gran % (Auto) (0-0.5) % Neut % (Auto) (45.5-73.1) % Lymph % (Auto) (18.3-44.2) % [place] % (Auto) (2.6-8.5) % Eos % (Auto) (0-4.4) % Baso % (Auto) (0.2-1.2) % Lymph # (Auto) (0.9-3.2) K/mm3 [place] # (Auto) (0.1-0.6) K/mm3 Eos # (Auto) (0-0.3) K/mm3 Baso # (Auto) (0.0-0.1) K/mm3 Abs Immat Gran (auto) (0.00-0.031) K/mm3 Absolute Neuts (auto) (1.3-6.7) K/mm3 Absolute Nucleated RBC (0.0-0.012) K/mm3 Nucleated RBC % (0.0-0.2) % D-Dimer (<0.48) ug/mL Sodium Potassium Chloride Carbon Dioxide Anion Gap BUN Creatinine Estim Creat Clear Calc Estimated GFR > 60 Glucose Cancelled 133 H Lactic Acid (0.7-2.0) mmol/L Calcium Cancelled 8.6 Total Bilirubin Cancelled AST ALT Alkaline Phosphatase Troponin I (0.000-0.034) ng/mL NT-Pro-B Natriuret Pep (19.9-100) pg/mL Total Protein Albumin Urine Color (Yellow) Urine Appearance (Clear) Urine pH (5.0-9.0) Ur Specific [place] (1.001-1.035) Urine Protein (Negative) mg/dL Urine Glucose (UA) (Negative) mg/dL Urine Ketones (Negative) mg/dL Ur Blood (Man) (Negative) Urine Nitrate (Negative) Urine Bilirubin (Negative) Urine Urobilinogen (<2.0) mg/dL Leukocyte Esterase Rfl (Negative) JENNI/UL Urine RBC (0-2) /hpf Urine WBC (0-3) /hpf Ur Squamous Epith Cells (Few) /hpf Urine Bacteria /hpf Urine Casts Urine Opiates Screen (Negative) Urine Methadone Screen (Negative) Ur Barbiturates Screen (Negative) Levetiracetam Ur Phencyclidine Scrn (Negative) Ur Amphetamine Screen (Negative) U Benzodiazepines Scrn (Negative) Urine Cocaine Screen (Negative) U Cannabinoids Screen (Negative) Influenza A (RT-PCR) (Negative) Influenza B (RT-PCR) (Negative) RSV (RT-PCR) (Negative) SARS-CoV-2 RNA (RT-PCR) (Negative) 11/04/24 11/04/24 11/04/24 Range/Units 05:18 05:18 05:18 WBC (4.5-10.0) K/mm3 RBC (4.6-6.20) M/mm3 Hgb (14.0-18.0) g/dL Hct (42.0-52.0) % MCV (80-100) fl MCH (26-34) pg MCHC (32-36) g/dl RDW (11.5-14.5) % Plt Count (150-375) k/mm3 MPV (7.4-10.4) fl Immature Gran % (Auto) (0-0.5) % Neut % (Auto) (45.5-73.1) % Lymph % (Auto) (18.3-44.2) % [place] % (Auto) (2.6-8.5) % Eos % (Auto) (0-4.4) % Baso % (Auto) (0.2-1.2) % Lymph # (Auto) (0.9-3.2) K/mm3 [place] # (Auto) (0.1-0.6) K/mm3 Eos # (Auto) (0-0.3) K/mm3 Baso # (Auto) (0.0-0.1) K/mm3 Abs Immat Gran (auto) (0.00-0.031) K/mm3 Absolute Neuts (auto) (1.3-6.7) K/mm3 Absolute Nucleated RBC (0.0-0.012) K/mm3 Nucleated RBC % (0.0-0.2) % D-Dimer (<0.48) ug/mL Sodium Potassium Chloride Carbon Dioxide Anion Gap BUN Creatinine Estim Creat Clear Calc Estimated GFR Glucose Lactic Acid (0.7-2.0) mmol/L Calcium Total Bilirubin 0.6 AST Cancelled 75 H ALT Cancelled 72 H Alkaline Phosphatase Cancelled Troponin I (0.000-0.034) ng/mL NT-Pro-B Natriuret Pep (19.9-100) pg/mL Total Protein Albumin Urine Color (Yellow) Urine Appearance (Clear) Urine pH (5.0-9.0) Ur Specific [place] (1.001-1.035) Urine Protein (Negative) mg/dL Urine Glucose (UA) (Negative) mg/dL Urine Ketones (Negative) mg/dL Ur Blood (Man) (Negative) Urine Nitrate (Negative) Urine Bilirubin (Negative) Urine Urobilinogen (<2.0) mg/dL Leukocyte Esterase Rfl (Negative) JENNI/UL Urine RBC (0-2) /hpf Urine WBC (0-3) /hpf Ur Squamous Epith Cells (Few) /hpf Urine Bacteria /hpf Urine Casts Urine Opiates Screen (Negative) Urine Methadone Screen (Negative) Ur Barbiturates Screen (Negative) Levetiracetam Ur Phencyclidine Scrn (Negative) Ur Amphetamine Screen (Negative) U Benzodiazepines Scrn (Negative) Urine Cocaine Screen (Negative) U Cannabinoids Screen (Negative) Influenza A (RT-PCR) (Negative) Influenza B (RT-PCR) (Negative) RSV (RT-PCR) (Negative) SARS-CoV-2 RNA (RT-PCR) (Negative) 11/04/24 11/04/24 11/04/24 Range/Units 05:18 05:18 05:18 WBC (4.5-10.0) K/mm3 RBC (4.6-6.20) M/mm3 Hgb (14.0-18.0) g/dL Hct (42.0-52.0) % MCV (80-100) fl MCH (26-34) pg MCHC (32-36) g/dl RDW (11.5-14.5) % Plt Count (150-375) k/mm3 MPV (7.4-10.4) fl Immature Gran % (Auto) (0-0.5) % Neut % (Auto) (45.5-73.1) % Lymph % (Auto) (18.3-44.2) % [place] % (Auto) (2.6-8.5) % Eos % (Auto) (0-4.4) % Baso % (Auto) (0.2-1.2) % Lymph # (Auto) (0.9-3.2) K/mm3 [place] # (Auto) (0.1-0.6) K/mm3 Eos # (Auto) (0-0.3) K/mm3 Baso # (Auto) (0.0-0.1) K/mm3 Abs Immat Gran (auto) (0.00-0.031) K/mm3 Absolute Neuts (auto) (1.3-6.7) K/mm3 Absolute Nucleated RBC (0.0-0.012) K/mm3 Nucleated RBC % (0.0-0.2) % D-Dimer (<0.48) ug/mL Sodium Potassium Chloride Carbon Dioxide Anion Gap BUN Creatinine Estim Creat Clear Calc Estimated GFR Glucose Lactic Acid (0.7-2.0) mmol/L Calcium Total Bilirubin AST ALT Alkaline Phosphatase 55 Troponin I 0.168 H* (0.000-0.034) ng/mL NT-Pro-B Natriuret Pep < 20 (19.9-100) pg/mL Total Protein Cancelled 7.0 Albumin Cancelled 4.1 Urine Color (Yellow) Urine Appearance (Clear) Urine pH (5.0-9.0) Ur Specific [place] (1.001-1.035) Urine Protein (Negative) mg/dL Urine Glucose (UA) (Negative) mg/dL Urine Ketones (Negative) mg/dL Ur Blood (Man) (Negative) Urine Nitrate (Negative) Urine Bilirubin (Negative) Urine Urobilinogen (<2.0) mg/dL Leukocyte Esterase Rfl (Negative) JENNI/UL Urine RBC (0-2) /hpf Urine WBC (0-3) /hpf Ur Squamous Epith Cells (Few) /hpf Urine Bacteria /hpf Urine Casts Urine Opiates Screen (Negative) Urine Methadone Screen (Negative) Ur Barbiturates Screen (Negative) Levetiracetam Ur Phencyclidine Scrn (Negative) Ur Amphetamine Screen (Negative) U Benzodiazepines Scrn (Negative) Urine Cocaine Screen (Negative) U Cannabinoids Screen (Negative) Influenza A (RT-PCR) (Negative) Influenza B (RT-PCR) (Negative) RSV (RT-PCR) (Negative) SARS-CoV-2 RNA (RT-PCR) (Negative) 11/04/24 11/04/24 11/04/24 Range/Units 05:24 05:33 06:33 WBC (4.5-10.0) K/mm3 RBC (4.6-6.20) M/mm3 Hgb (14.0-18.0) g/dL Hct (42.0-52.0) % MCV (80-100) fl MCH (26-34) pg MCHC (32-36) g/dl RDW (11.5-14.5) % Plt Count (150-375) k/mm3 MPV (7.4-10.4) fl Immature Gran % (Auto) (0-0.5) % Neut % (Auto) (45.5-73.1) % Lymph % (Auto) (18.3-44.2) % [place] % (Auto) (2.6-8.5) % Eos % (Auto) (0-4.4) % Baso % (Auto) (0.2-1.2) % Lymph # (Auto) (0.9-3.2) K/mm3 [place] # (Auto) (0.1-0.6) K/mm3 Eos # (Auto) (0-0.3) K/mm3 Baso # (Auto) (0.0-0.1) K/mm3 Abs Immat Gran (auto) (0.00-0.031) K/mm3 Absolute Neuts (auto) (1.3-6.7) K/mm3 Absolute Nucleated RBC (0.0-0.012) K/mm3 Nucleated RBC % (0.0-0.2) % D-Dimer (<0.48) ug/mL Sodium Potassium Chloride Carbon Dioxide Anion Gap BUN Creatinine Estim Creat Clear Calc Estimated GFR Glucose Lactic Acid 1.2 (0.7-2.0) mmol/L Calcium Total Bilirubin AST ALT Alkaline Phosphatase Troponin I (0.000-0.034) ng/mL NT-Pro-B Natriuret Pep (19.9-100) pg/mL Total Protein Albumin Urine Color Yellow (Yellow) Urine Appearance Clear (Clear) Urine pH 5.5 (5.0-9.0) Ur Specific [place] 1.021 (1.001-1.035) Urine Protein 2+ H (Negative) mg/dL Urine Glucose (UA) Negative (Negative) mg/dL Urine Ketones Negative (Negative) mg/dL Ur Blood (Man) 2+ H (Negative) Urine Nitrate Negative (Negative) Urine Bilirubin Negative (Negative) Urine Urobilinogen 0.2 (<2.0) mg/dL Leukocyte Esterase Rfl Negative (Negative) JENNI/UL Urine RBC 0-2 (0-2) /hpf Urine WBC 0-5 (0-3) /hpf Ur Squamous Epith Cells None seen (Few) /hpf Urine Bacteria None seen /hpf Urine Casts 0-2 Urine Opiates Screen Negative (Negative) Urine Methadone Screen Negative (Negative) Ur Barbiturates Screen Negative (Negative) Levetiracetam Ur Phencyclidine Scrn Negative (Negative) Ur Amphetamine Screen Negative (Negative) U Benzodiazepines Scrn Negative (Negative) Urine Cocaine Screen Negative (Negative) U Cannabinoids Screen Negative (Negative) Influenza A (RT-PCR) Negative (Negative) Influenza B (RT-PCR) Negative (Negative) RSV (RT-PCR) Negative (Negative) SARS-CoV-2 RNA (RT-PCR) Negative (Negative) 11/04/24 Range/Units 08:37 WBC (4.5-10.0) K/mm3 RBC (4.6-6.20) M/mm3 Hgb (14.0-18.0) g/dL Hct (42.0-52.0) % MCV (80-100) fl MCH (26-34) pg MCHC (32-36) g/dl RDW (11.5-14.5) % Plt Count (150-375) k/mm3 MPV (7.4-10.4) fl Immature Gran % (Auto) (0-0.5) % Neut % (Auto) (45.5-73.1) % Lymph % (Auto) (18.3-44.2) % [place] % (Auto) (2.6-8.5) % Eos % (Auto) (0-4.4) % Baso % (Auto) (0.2-1.2) % Lymph # (Auto) (0.9-3.2) K/mm3 [place] # (Auto) (0.1-0.6) K/mm3 Eos # (Auto) (0-0.3) K/mm3 Baso # (Auto) (0.0-0.1) K/mm3 Abs Immat Gran (auto) (0.00-0.031) K/mm3 Absolute Neuts (auto) (1.3-6.7) K/mm3 Absolute Nucleated RBC (0.0-0.012) K/mm3 Nucleated RBC % (0.0-0.2) % D-Dimer (<0.48) ug/mL Sodium Potassium Chloride Carbon Dioxide Anion Gap BUN Creatinine Estim Creat Clear Calc Estimated GFR Glucose Lactic Acid (0.7-2.0) mmol/L Calcium Total Bilirubin AST ALT Alkaline Phosphatase Troponin I 0.172 H* (0.000-0.034) ng/mL NT-Pro-B Natriuret Pep (19.9-100) pg/mL Total Protein Albumin Urine Color (Yellow) Urine Appearance (Clear) Urine pH (5.0-9.0) Ur Specific [place] (1.001-1.035) Urine Protein (Negative) mg/dL Urine Glucose (UA) (Negative) mg/dL Urine Ketones (Negative) mg/dL Ur Blood (Man) (Negative) Urine Nitrate (Negative) Urine Bilirubin (Negative) Urine Urobilinogen (<2.0) mg/dL Leukocyte Esterase Rfl (Negative) JENNI/UL Urine RBC (0-2) /hpf Urine WBC (0-3) /hpf Ur Squamous Epith Cells (Few) /hpf Urine Bacteria /hpf Urine Casts Urine Opiates Screen (Negative) Urine Methadone Screen (Negative) Ur Barbiturates Screen (Negative) Levetiracetam Pending Ur Phencyclidine Scrn (Negative) Ur Amphetamine Screen (Negative) U Benzodiazepines Scrn (Negative) Urine Cocaine Screen (Negative) U Cannabinoids Screen (Negative) Influenza A (RT-PCR) (Negative) Influenza B (RT-PCR) (Negative) RSV (RT-PCR) (Negative) SARS-CoV-2 RNA (RT-PCR) (Negative) Imaging Data Radiologist's impression: Impressions Chest CTA 11/04/24 07:51 IMPRESSION: 1. No pulmonary embolism. 2. Mild groundglass opacities in the right upper lobe which could represent atelectasis, pneumonia or mild pulmonary edema. Chest X-Ray 11/04/24 07:56 IMPRESSION: 1. No acute cardiopulmonary disease. Shoulder X-Ray 11/04/24 07:57 IMPRESSION: Normal alignment with age-indeterminate likely Hill-Sachs fracture trough at the posterolateral humeral head suggesting prior dislocation/relocation. ECG Data EKG #1: Attestation: I personally reviewed and interpreted this ECG as follows: ECG completion date: 11/04/24 ECG completion time: 05:08 Interpretation: Normal sinus rhythm at a rate of 93 beats per minute. OK interval 159. QRS 90. QT/QTC 336/387. Good R-wave progression across the precordial leads. Normal axis. No T-wave inversions. Normal ECG. Discharge Plan Discharge Clinical Impression: Elevated AST (SGOT), ALT (SGPT) level raised, Non-ST elevation [place] (NSTEMI), Ground glass opacity present on imaging of lung, Shortness of breath, Seizure, Dislocation of shoulder, left, closed, Hill-Sachs fracture Patient Disposition: Still a Patient Condition: Stable Patient Language: Czech Prescriptions: No Action levetiracetam [Keppra] 500 mg tablet 1,500 mg PO BID 30 Days Qty: 180 0RF amoxicillin-pot clavulanate 875-125 mg tablet 1 tablet PO Q12H Qty: 14 0RF prednisone 20 mg tablet 40 mg PO DAILY Qty: 10 0RF albuterol sulfate 90 mcg/actuation HFA aerosol inhaler 1 inh inhalation QID PRN (Reason: shortness of breath or wheezing) Qty: 6.7 0RF azithromycin 250 mg tablet 250 mg PO DAILY 4 Days Qty: 4 0RF Rx Instructions: start on day 2 of therapy
[2024-11-04] MEDS: HYDROcodone/acetaminophen (*CRX) 5-325 MG TABLET 1 TAB PO (05:22)
[2024-11-04 05:31] LABS: Basophils Percent Auto 0.4 % (0.2-1.2); Eosinophils Absolute Auto 0.1 K/mm3 (0-0.3); Eosinophils Percent Auto 0.9 % (0-4.4); Hematocrit 43.3 % (42.0-52.0); Hemoglobin 15.4 g/dL (14.0-18.0); Immature Granulocyte Absolute 0.13 K/mm3 (0.00-0.031); Immature Granulocyte Percent A 1.4 % (0-0.5); Lymphocytes Absolute Auto 1.35 K/mm3 (0.9-3.2); Lymphocytes Percent Auto 14.4 % (18.3-44.2); Mean Corpuscular HGB Conc 35.6 g/dl (32-36); Mean Corpuscular Hemoglobin 27.9 pg (26-34); Mean Corpuscular Volume 78.4 fl (80-100); Mean Platelet Volume 10.6 fl (7.4-10.4); Monocytes Absolute Auto 0.8 K/mm3 (0.1-0.6); Monocytes Percent Auto 8.4 % (2.6-8.5); Neutrophils Percent Auto 74.5 % (45.5-73.1); Platelet Count Result 225 k/mm3 (150-375); Red Blood Count 5.52 M/mm3 (4.6-6.20); Red Cell Distribution Width 13.7 % (11.5-14.5); White Blood Count 9.4 K/mm3 (4.5-10.0)
--- OUTSIDE RECORDS SUMMARY | 2024-11-04 05:33 | XMS_ITS | CONTINUITY OF CARE DOCUMENT ---
Author Name [email or web address] Address Unknown Organization [facility] Address [address] [place] [address] [address] [place] [address] Phone [phone] Care Team Providers Care Golf Coach Name Role Phone Farzad King MD Unavailable [phone] EMELYN PURCELL MD Unavailable [phone] EMELYN PURCELL MD Unavailable [phone] [employer] Payer name Policy type / Coverage type [place] [employer] party ID [facility] [id number] Other [id number]
[2024-11-04 05:40] LABS: Alanine Aminotransferase 72 U/L (6-50); Albumin Level 4.1 g/dL (3.5-5.1); Alkaline Phosphatase 55 U/L (38-126); Anion Gap 9 mmol/L (4-12); Aspartate Amino Transferase 75 U/L (17-59); Bilirubin,Total 0.6 mg/dL (0.2-1.3); Blood Urea Nitrogen 12 mg/dL (9-20); Calcium 8.6 mg/dL (8.4-10.2); Carbon Dioxide 21 mmol/L (22-30); Chloride 107 mmol/L (98-107); Estimated CRCL calculation 141 ml/min; Estimated Glomerular Filt Rate > 60; Glucose 133 mg/dL (65-110); Potassium 4.2 mmol/L (3.4-5.0); Sodium 137 mmol/L (137-145)
[2024-11-04 05:46] LABS: Add Urine Microscopic? YES; Appearance Urine Clear (Clear); Bacteria Urine None Seen /hpf; Bilirubin Urine Negative (Negative); Blood Urine 2+ (Negative); Color Urine Yellow (Yellow); Glucose Urine UA Negative (Negative); Ketones Urine Negative (Negative); Leukocyte Esterase Ur Negative LEU/UL (Negative); Nitrate Urine Negative (Negative); Non Pathogenic Casts 0-2; Protein Urine 2+ mg/dL (Negative); RBC Urine 0-2 /hpf (0-2); Specific Grav Ur 1.021 (1.001-1.035); Squamous Epithelial Cell Urine None Seen /hpf (Few); Urobilinogen Urine 0.2 mg/dL (<2.0); WBC Urine 0-5 /hpf (0-3); pH Urine 5.5 (5.0-9.0)
[2024-11-04 05:55] LABS: Troponin I 0.168 ng/mL (0.000-0.034)
[2024-11-04 05:59] LABS: Amphetamine Screen Urine Negative (Negative); Barbiturate Screen Urine Negative (Negative); Benzodiazepines Screen Urine Negative (Negative); Cannabinoid Screen Urine Negative (Negative); Cocaine Screen Urine Negative (Negative); Methadone Screen Urine Negative (Negative); Opiate Screen Urine Negative (Negative); Phencyclidine Screen Urine Negative (Negative)
[2024-11-04 06:36] LABS: NT Pro B Type Natriuretic Pept < 20 pg/mL (19.9-100)
[2024-11-04 06:50] LABS: Lactic Acid Reflex 1.2 mmol/L (0.7-2.0)
[2024-11-04 07:03] LABS: D Dimer 1.01 ug/mL (<0.48)
[2024-11-04 07:14] LABS: Influenza A QL RT-PCR Negative (Negative); Influenza B QL RT-PCR Negative (Negative); RSV RNA, RT-PCR Negative (Negative); SARS-CoV-2 RNA PCR Negative (Negative)
[2024-11-04] MEDS: levETIRAcetam 1000MG/NACL100ML 1,000 MG/100 ML BAG 400 MG IVPB (08:46)
[2024-11-04 09:07] LABS: Troponin I 0.172 ng/mL (0.000-0.034)
[2024-11-04] MEDS: AZITHROMYCIN 500 MG/NS 250 ML 500 MG/250 ML BAG 250 MG IVPB (11:06)
[2024-11-04 11:43] LABS: Troponin I 0.119 ng/mL (0.000-0.034)
--- NOTE | 2024-11-04 12:16 | ECG_ITS ---
Test Date: 2024-11-04 12:24:33 Measurements Intervals [place] Rate: 89 P: 53 MS: 160 QRS: 34 QRSD: 92 T: 57 QT: 352 QTc: 430 Interpretive Statements SINUS RHYTHM NORMAL ECG Compared to ECG 11/04/2024 05:08:21 No significant changes Electronically Signed On 11-04-2024 14:28:16 BALANCING MACHINE OPERATOR by Tito Villatoro D.O.
--- NOTE | 2024-11-04 15:04 | P.HP_ITS ---
H&P: HPI History of Present Illness Date/Time: 11/04/24 15:04 Chief Complaint: Seizure Narrative: Patient is a 34-year-old male who presented to the ER with complaint of having seizure last night. He stated he always gets seizure at night. When he woke up he found himself on the floor had pain in his left shoulder due to shoulder dislocation was incontinent of urine and also bit his tongue. He has been diag nosed with seizure disorder since his been at [place] from which he moved last year. His prescription is 1500 mg of Keppra twice a day however he has been taking only 500 mg at night since he has been prescribed as he states the higher dose of Keppra makes him feel weird. Furthermore he also has stopped taking his Keppra altogether since past 2 weeks because he has been running out of the prescription he has seen someone here however has not followed up with her recently. He looked up how to relocate his shoulder online and date himself this morning after which he feels better. He had recurrent shoulder dislocation also related to his seizure episodes in the past. On ER evaluation his vitals were stable. Laboratory evaluation showed normal WBC hemoglobin was 15.4 Chem panel was unremarkable D-dimer came back elevated. Troponin also came back elevated at 0.168 lactate was normal urinalysis was negative for infection. Influenza RSV COVID swab was negative. Repeat troponin was 0.172 which remains flat. Chest x-ray showed no acute cardiopulmonary disease because of elevated D-dimer chest CT was performed which showed no pulmonary embolism. Mild ground-glass opacity in the right upper lobe which could represent atelectasis pneumonia or mild pulmonary edema. Shoulder x-ray was done which showed normal alignment with age indeterminate likely healed sacs fracture trough at the posterolateral humeral head suggesting prior dislocation/relocation. EKG showed normal sinus rhythm with no acute changes. This was compared with previous EKG and was unchanged. He is admitted in this setting for further treatment. [facility] Past Medical History Medical History (Updated 11/04/24 @ 15:15 by Rufus Smith MD) Seizure disorder Social History Social History (Updated 11/04/24 @ 09:09 by Heaven Rodas MD) Social History: Previously lived in [place] Smoking status: Former smoker Tobacco type: e-cigarettes/vaping Smoking end date: 08/26/24 Additional smoking assessment comments: 1 cartridge Alcohol intake: never Substance use: never Substance use type: does not use Do You Feel Safe in your Home?: Yes Lack of Transportation: No Lack of Food: Never True Current Housing: I Have Housing Concerned About Future Housing: No Difficulty Paying Gas/Electric Bills: No Difficulty Paying for Meds: No Currently Unemployed: No Education: Associate Degree Difficulty w/ Childcare or Family Care: No Occupation/Education: occupation Additional occupation/education comments: 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 [employer] Spiritual care concerns: No Meds Home Medications and Allergies Home Medications ?Medication ?Instructions ?Recorded ?Confirmed ?Type albuterol sulfate 90 mcg/actuation 1 inh inhalation QID PRN shortness 01/10/24 11/04/24 Rx aerosol inhaler of breath or wheezing #6.7 grams aspirin 325 mg capsule 325 mg PO DAILY 11/04/24 11/04/24 History levetiracetam 500 mg tablet 500 mg PO DAILY 11/04/24 11/04/24 History ([place]) Allergies Allergy/AdvReac Type Severity Reaction Status Date / Time No Known Allergies Allergy Verified 11/04/24 12:14 Vital Signs Vital Signs - 24 hr 11/04/24 06:03 11/04/24 06:05 11/04/24 07:39 Temperature 98 F Pulse Rate 99 91 Respiratory Rate 20 20 Blood Pressure 132/83 135/92 H Pulse Oximetry 94 95 96 Oxygen Delivery Room Air 11/04/24 08:50 11/04/24 12:09 11/04/24 14:05 Temperature Pulse Rate 90 95 97 Respiratory Rate 20 20 19 Blood Pressure 167/98 H 151/95 H 140/77 Pulse Oximetry 96 96 95 Oxygen Delivery 11/04/24 14:54 Temperature 98.4 F Pulse Rate 91 Respiratory Rate 20 Blood Pressure 122/81 Pulse Oximetry 100 Oxygen Delivery Exam Narrative: GENERAL: Well-appearing, well-nourished, and in no acute distress. HEAD: Normocephalic, atraumatic. EYES: Non injected, non icteric ENT: Nares clear, no rhinorrhea or epistaxis. Mild superficial tongue trauma bilaterally, no active bleeding. NECK: Supple. CHEST: No respiratory distress. Lungs clear to auscultation bilaterally without appreciable crackles/wheezes. HEART: Regular rate and rhythm. ABDOMEN: Soft, nondistended. Obese. EXTREMITIES: Normal range of motion. No lower extremity edema. Shoulders grossly symmetric sling in place SKIN: Warm, dry, no rash. NEURO: No focal deficits. Alert and oriented x3. PSYCH: Normal mood and affect. H&P: Results Labs Labs: Short CBC 11/04/24 Range/Units 05:18 WBC 9.4 (4.5-10.0) K/mm3 Hgb 15.4 (14.0-18.0) g/dL Hct 43.3 (42.0-52.0) % Plt Count 225 (150-375) k/mm3 BMP 11/04/24 11/04/24 11/04/24 05:18 05:18 05:18 Sodium Cancelled 137 Potassium Cancelled 4.2 Chloride Cancelled Carbon Dioxide BUN Creatinine Glucose Calcium 11/04/24 11/04/24 11/04/24 05:18 05:18 05:18 Sodium Potassium Chloride 107 Carbon Dioxide Cancelled 21 L BUN Cancelled 12 Creatinine Cancelled Glucose Calcium 11/04/24 11/04/24 11/04/24 05:18 05:18 05:18 Sodium Potassium Chloride Carbon Dioxide BUN Creatinine 1.01 Glucose Cancelled 133 H Calcium Cancelled 8.6 Cardiac Enzymes 11/04/24 11/04/24 11/04/24 Range/Units 05:18 08:37 11:12 Troponin I 0.168 H* 0.172 H* 0.119 H* D (0.000-0.034) ng/mL Liver Function 11/04/24 11/04/24 11/04/24 Range/Units 05:18 05:18 05:18 Total Bilirubin Cancelled 0.6 AST Cancelled 75 H ALT Cancelled Alkaline Phosphatase Albumin 11/04/24 11/04/24 11/04/24 Range/Units 05:18 05:18 05:18 Total Bilirubin AST ALT 72 H Alkaline Phosphatase Cancelled 55 Albumin Cancelled 4.1 Urine 11/04/24 Range/Units 05:33 Urine Color Yellow (Yellow) Urine Appearance Clear (Clear) Urine pH 5.5 (5.0-9.0) Ur Specific [place] 1.021 (1.001-1.035) Urine Protein 2+ H (Negative) mg/dL Urine Glucose (UA) Negative (Negative) mg/dL Assessment and Plan Assessment and plan (1) Hill-Sachs fracture: Code(s): S42.293A - Other displaced fracture of upper end of unspecified humerus, initial encounter for closed fracture Status: Acute (2) Dislocation of shoulder, left, closed: Code(s): S43.005A - Unspecified dislocation of left shoulder joint, initial encounter Status: Acute (3) Seizure: Code(s): R56.9 - Unspecified convulsions Status: Acute (4) Ground glass opacity present on imaging of lung: Code(s): R91.8 - Other nonspecific abnormal finding of lung field Status: Acute (5) Elevated troponin: Code(s): R79.89 - Other specified abnormal findings of blood chemistry Status: Acute Plan Patient is a 34-year-old male who presented to the ER with complaint of having seizure last night. He stated he always gets seizure at night. When he woke up he found himself on the floor had pain in his left shoulder due to shoulder dislocation was incontinent of urine and also bit his tongue. He has been diagnosed with seizure disorder since his been at [place] from which he moved last year. His prescription is 1500 mg of Keppra twice a day however he has been taking only 500 mg at night since he has been prescribed as he states the higher dose of Keppra makes him feel weird. Furthermore he also has stopped taking his Keppra altogether since past 2 weeks because he has been running out of the prescription he has seen someone here however has not followed up with her recently. He looked up how to relocate his shoulder online and date himself this morning after which he feels better. He had recurrent shoulder dislocation also related to his seizure episodes in the past. On ER evaluation his vitals were stable. Laboratory evaluation showed normal WBC hemoglobin was 15.4 Chem panel was unremarkable D-dimer came back elevated. Troponin also came back elevated at 0.168 lactate was normal urinalysis was negative for infection. Influenza RSV COVID swab was negative. Repeat troponin was 0.172 which remains flat. Chest x-ray showed no acute cardiopulmonary disease because of elevated D-dimer chest CT was performed which showed no pulmonary embolism. Mild ground-glass opacity in the right upper lobe which could represent atelectasis pneumonia or mild pulmonary edema. Shoulder x-ray was done which showed normal alignment with age indeterminate likely healed sacs fracture trough at the posterolateral humeral head suggesting prior dislocation/relocation. EKG showed normal sinus rhythm with no acute changes. This was compared with previous EKG and was unchanged. He is admitted in this setting for further treatment. Elevated troponin with flat trend could be related to seizure. No prior history of coronary artery disease. Will get echocardiogram in a.m.. Continue on aspirin. Seizure disorder with breakthrough seizures likely related to noncompliance with his seizure medication. He states 1500 twice a day Keppra makes him feel weird. Will keep him out 500 mg b.i.d.. He seizure seems to be controlled on 500 daily dose prior to this. Follow-up with neurology as an outpatient basis Left shoulder dislocation orthopedic consultation continue on sling Ground-glass opacities suggesting pneumonia very minimal respiratory symptoms. Currently on ceftriaxone and azithromycin. DVT prophylaxis Lovenox Code status full code Hospitalist MIPS Advance Care Plan I have confirmed that the patient's Advanced Care Plan is present, code status is documented, or surrogate decision maker is listed in patient medical record.: Yes Medication Reconciliation I have utilized all available resources to obtain, update and review the patients current medications (includes all prescriptions, OTC, herbals, cannabis, and nutritional supplements).: Yes
[2024-11-04] MEDS: levETIRAcetam 500 MG TABLET PO (20:09)
[2024-11-05] VITALS (12 sets, daily range): BP systolic 138–166; BP diastolic 79–94; PULSE 64–98; RESP 20–22; TEMP 36.4–37.1; O2SAT 95–98
--- NOTE | 2024-11-05 | ECHO_ITS ---
Patient Info Name: Ignacio Bahena Age: 34 years : 1990 Gender: Male Ht: 70 in Wt: 363 lbs BSA: 2.94 m2 HR: 88 bpm BP: 138 / 81 mmHg Heart Rhythm: Sinus Rhythm Technical Quality: Good Exam Date: 11/05/2024 8:46 AM Exam Location: Echo Lab Patient Status: Inpatient Admit Date: 11/04/2024 Staff Ordering Physician: Rufus Smith MD Supervisor Bonding: Rochelle Dickens RDCS Attending Provider: Madelin Leung MD Exam Type: CA echo doppler color flow Study Info Indications - elevated troponin Complete two-dimensional, color flow and Doppler transthoracic echocardiogram is performed. Summary 1. Complete two-dimensional, color flow and Doppler transthoracic echocardiogram is performed. 2. There is normal biventricular size and systolic function. 3. There is no significant valvular disease. Left Ventricle The left ventricle is normal in size and systolic function. The left ventricular simmons are mildly thickened. The left ventricular ejection fraction is visually estimated be 60-65%. Right Ventricle The right ventricle is normal in size and systolic function. Left Atria The left atrium is normal. Right Atria The right atrium is normal. Atrial Septum The atrial septum is not well visualized. Aortic Valve The number of leaflets is difficult to determine in this study. The valve itself opens well with no significant aortic regurgitation. Pulmonic Valve The pulmonic valve is grossly normal. There is no significant pulmonic valve regurgitation. Mitral Valve The mitral valve is normal. There is no mitral regurgitation. Tricuspid Valve The tricuspid valve is normal. There is no significant tricuspid regurgitation. Pericardium/Pleural Pericardium is normal in appearance with no evidence for significant pericardial effusion. Inferior Vena Cava Inferior vena cava is not well visualized. Aorta The aortic root at the level of the sinus of Valsalva measures 3.0 cm in diameter. Left Ventricular Outflow Tract Name Value Normal LVOT 2D LVOT Diameter 2.1 cm LVOT Doppler LVOT Peak Gradient 4 mmHg LVOT Mean Gradient 2 mmHg LVOT VTI 18 cm LVOT VTI/AV VTI Ratio 0.7 LVOT Stroke Volume 62 ml LVOT CO 5.2 l/min LVOT CI 1.8 l/min/m2 Pulmonic Valve Name Value Normal RVOT Doppler RVOT Peak Gradient 4 mmHg PV Doppler PV Peak Gradient 7 mmHg Mitral Valve Name Value Normal MV Doppler MV Decel [place] 482 cm/s2 MV PHT 54 ms MV Area (PHT) 4.0 cm2 4.0-5.0 MV Diastolic Function MV E Peak Velocity 90 cm/s MV A Peak Velocity 56 cm/s MV E/A 1.6 MV Decel Time 188 ms MV Annular TDI MV E/e' (Septal) 11.2 <=8.0 MV E/e' (Lateral) 7.4 <=8.0 MV E/e' (Average) 9.3 Tricuspid Valve Name Value Normal TV Regurgitation Doppler TR Peak Velocity 225 cm/s TR Peak Gradient 20 mmHg Estimated PAP/RSVP RA Pressure 10 mmHg <=5 PA Systolic Pressure 30 mmHg <36 RV Systolic Pressure 30 mmHg <36 Aorta Name Value Normal Ascending Aorta Ao Root Diameter (MM) 3.2 cm Ao Root Diam Index (MM) 1.1 cm/m2 Aortic Valve Name Value Normal AV Doppler AV Peak Velocity 144 cm/s AV Peak Gradient 8 mmHg AV Mean Gradient 5 mmHg AV VTI 25 cm AV Area (Cont Eq VTI) 2.4 cm2 >=3.0 AV Area (Cont Eq Ang) 2.5 cm2 AV Regurgitation 2D LVOT Area 3.4 cm2 Ventricles Name Value Normal LV Dimensions 2D/MM IVS Diastolic Thickness (2D) 1.2 cm 0.6-1.0 LVID Diastole (2D) 5.2 cm 4.2-5.8 LVIW Diastolic Thickness (2D) 1.1 cm 0.6-1.0 LVID Systole (2D) 3.5 cm 2.5-4.0 LVOT Diameter 2.1 cm LV Mass (2D Cubed) 226.60 g 88.00-224.00 LV Mass Index (2D Cubed) 77 g/m2 49-115 Relative Wall Thickness (2D) 0.41 LV Fractional Shortening/Ejection Fraction 2D/MM LV Fractional Shortening (2D) 32 % 25-43 LV EF (2D Teicholz) 60 % 52-72 LV Diastolic Volume (4C MOD) 117 ml LV EF (4C MOD) 71 % LV Diastolic Volume (2C MOD) 118 ml LV EF (2C MOD) 70 % LV Diastolic Volume (BP MOD) 118 ml 62-150 LV Diastolic Volume Index (BP MOD) 40 ml/m2 34-74 LV Systolic Volume (BP MOD) 35 ml 21-61 LV Systolic Volume Index (BP MOD) 12 ml/m2 11-31 LV EF (BP MOD) 70 % 52-72 LV Diastolic Length (4C) 9.3 cm LV Systolic Length (4C) 7.6 cm LV Stroke Volume (4C MOD) 83 ml Atria Name Value Normal LA Dimensions LA Dimension (MM) 4.2 cm 3.0-4.1 LA Volume (4C A-L) 40 ml LA Volume (BP A-L) 43 ml RA Dimensions RA Area (4C) 12.8 cm2 <=18.0 Report Signatures
[2024-11-05] MEDS: levETIRAcetam 500 MG TABLET PO (08:30)
[2024-11-05] MEDS: ASPIRIN 325 MG TABLET PO (08:34)
[2024-11-05] MEDS: AZITHROMYCIN 500 MG/NS 250 ML 500 MG/250 ML BAG 250 MG IVPB (10:20)
--- NOTE | 2024-11-05 10:48 | P.PNIM_ITS ---
Progress Note: A&P Assessment and Plan (1) Hill-Sachs fracture: Code(s): S42.293A - Other displaced fracture of upper end of unspecified humerus, initial encounter for closed fracture Status: Acute (2) Dislocation of shoulder, left, closed: Code(s): S43.005A - Unspecified dislocation of left shoulder joint, initial encounter Status: Acute (3) Seizure: Code(s): R56.9 - Unspecified convulsions Status: Acute (4) Ground glass opacity present on imaging of lung: Code(s): R91.8 - Other nonspecific abnormal finding of lung field Status: Acute (5) Elevated troponin: Code(s): R79.89 - Other specified abnormal findings of blood chemistry Status: Acute Plan Patient is a 34-year-old male who presented to the ER with complaint of having seizure last night. He stated he always gets seizure at night. When he woke up he found himself on the floor had pain in his left shoulder due to shoulder dislocation was incontinent of urine and also bit his tongue. He has been diagnosed with seizure disorder since his been at [place] from which he moved last year. His prescription is 1500 mg of Keppra twice a day however he has been taking only 500 mg at night since he has been prescribed as he states the higher dose of Keppra makes him feel weird. Furthermore he also has stopped taking his Keppra altogether since past 2 weeks because he has been running out of the prescription he has seen someone here however has not followed up with her recently. He looked up how to relocate his shoulder online and date himself this morning after which he feels better. He had recurrent shoulder dislocation also related to his seizure episodes in the past. On ER evaluation his vitals were stable. Laboratory evaluation showed normal WBC hemoglobin was 15.4 Chem panel was unremarkable D-dimer came back elevated. Troponin also came back elevated at 0.168 lactate was normal urinalysis was negative for infection. Influenza RSV COVID swab was negative. Repeat troponin was 0.172 which remains flat. Chest x-ray showed no acute cardiopulmonary disease because of elevated D-dimer chest CT was performed which showed no pulmonary embolism. Mild ground-glass opacity in the right upper lobe which could represent atelectasis pneumonia or mild pulmonary edema. Shoulder x-ray was done which showed normal alignment with age indeterminate likely healed sacs fracture trough at the posterolateral humeral head suggesting prior dislocation/relocation. EKG showed normal sinus rhythm with no acute changes. This was compared with previous EKG and was unchanged. He is admitted in this setting for further treatment. Elevated troponin with flat trend could be related to seizure. No prior history of coronary artery disease. Will get echocardiogram in a.m.. Continue on aspirin. Cardiology has been consulted. Await his recommendations Seizure disorder with breakthrough seizures likely related to noncompliance with his seizure medication. He states 1500 twice a day Keppra makes him feel weird. Will keep him out 500 mg b.i.d.. He seizure seems to be controlled on 500 daily dose prior to this. Follow-up with neurology as an outpatient basis Left shoulder dislocation orthopedic consultation continue on sling. Follow-up with Ortho as an outpatient basis Ground-glass opacities suggesting pneumonia very minimal respiratory symptoms. Currently on ceftriaxone and azithromycin. Oral at discharge DVT prophylaxis Lovenox Code status full code Subjective Date/time seen: 11/05/24 10:48 Interval history: Feels well. No new seizures. Left arm is sore. Review of Systems Review of Systems: All systems reviewed & are unremarkable except as noted in HPI and below Exam Narrative: GENERAL: Well-appearing, well-nourished, and in no acute distress. HEAD: Normocephalic, atraumatic. EYES: Non injected, non icteric ENT: Nares clear, no rhinorrhea or epistaxis. Mild superficial tongue trauma bilaterally, no active bleeding. NECK: Supple. CHEST: No respiratory distress. Lungs clear to auscultation bilaterally without appreciable crackles/wheezes. HEART: Regular rate and rhythm. ABDOMEN: Soft, nondistended. Obese. EXTREMITIES: Normal range of motion. No lower extremity edema. Shoulders grossly symmetric sling in place SKIN: Warm, dry, no rash. NEURO: No focal deficits. Alert and oriented x3. PSYCH: Normal mood and affect. Objective Data Vital Signs Vital Signs: Vital Signs - 24 hr 11/04/24 12:09 11/04/24 14:00 11/04/24 14:05 Temperature Pulse Rate 95 98 97 Respiratory Rate 20 19 Blood Pressure 151/95 H 140/77 Pulse Oximetry 96 95 Oxygen Delivery 11/04/24 14:54 11/04/24 16:00 11/04/24 16:00 Temperature 98.4 F 98.3 F Pulse Rate 91 102 H 98 Respiratory Rate 20 24 H Blood Pressure 122/81 135/87 Pulse Oximetry 100 98 Oxygen Delivery 11/04/24 18:00 11/04/24 20:00 11/04/24 20:00 Temperature 98.5 F Pulse Rate 101 H 87 93 Respiratory Rate 22 H 22 H Blood Pressure 149/72 H Pulse Oximetry 97 97 Oxygen Delivery Room Air 11/04/24 20:00 11/04/24 21:53 11/04/24 23:33 Temperature Pulse Rate 93 86 82 Respiratory Rate 22 H Blood Pressure Pulse Oximetry 97 Oxygen Delivery Room Air 11/04/24 23:33 11/04/24 23:33 11/05/24 02:00 Temperature 97.8 F Pulse Rate 82 77 84 Respiratory Rate 18 Blood Pressure 145/81 H Pulse Oximetry 95 Oxygen Delivery 11/05/24 03:34 11/05/24 03:34 11/05/24 04:00 Temperature 98.4 F Pulse Rate 64 64 84 Respiratory Rate 22 H 20 Blood Pressure 138/81 Pulse Oximetry 97 98 Oxygen Delivery Room Air 11/05/24 05:52 11/05/24 07:22 11/05/24 08:00 Temperature 98.7 F Pulse Rate 88 93 93 Respiratory Rate 20 20 Blood Pressure 148/94 H Pulse Oximetry 97 97 Oxygen Delivery Room Air 11/05/24 08:00 11/05/24 10:00 Temperature Pulse Rate 98 76 Respiratory Rate Blood Pressure Pulse Oximetry Oxygen Delivery Intake/Output Intake/Output: Intake & Output 11/02/24 11/03/24 11/04/24 11/05/24 23:59 23:59 23:59 23:59 Intake Total 840 880 Output Total 300 Balance 540 880 Meds/Results Medications: Active Medications Generic Name Dose Route Start Last Admin Trade Name Freq PRN Reason Stop Dose Admin Acetaminophen 650 mg 11/04/24 09:14 Acetaminophen 325 Mg Tablet PO Q4H PRN Mild Pain (1-3) or Fever Albuterol 1 puff 11/04/24 15:12 Albuterol Sulfate (*Sp) Aerosol 1 Puff INHALATION QID PRN shortness of breath or wheezing Aspirin 325 mg 11/05/24 09:00 11/05/24 08:34 Aspirin 325 Mg Tablet PO 325 mg DAILY THAIS Administration Enoxaparin Sodium 40 mg 11/05/24 09:00 Enoxaparin 40 Mg/0.4 Ml Syringe SUB-Q DAILY THAIS Ceftriaxone Sodium 1 gm in 50 mls @ 100 mls/hr 11/05/24 09:00 11/05/24 08:35 Rocephin 1 Gm/Ns 50 Ml IVPB 100 mls/hr Q24H THAIS Administration Azithromycin 500 mg in 250 mls @ 250 mls/hr 11/05/24 09:00 Zithromax IVPB Q24H THAIS Levetiracetam 500 mg 11/04/24 21:00 11/05/24 08:30 Levetiracetam 500 Mg Tablet PO 500 mg Q12HR THAIS Administration Ondansetron HCl 4 mg 11/04/24 09:14 Ondansetron Inj 4 Mg/2 Ml Vial IV PUSH Q4H PRN Nausea Perflutren Lipid Microsphere 0 ml 11/04/24 15:12 Perflutren Lipid Microspheres 1.5 Ml Vial Diluted To 10 Ml Total Volume IV PUSH 11/07/24 15:12 ONCE PRN adequate visualization Protocol Radiology Results: ITS Impressions Chest CTA 11/04/24 07:51 IMPRESSION: 1. No pulmonary embolism. 2. Mild groundglass opacities in the right upper lobe which could represent atelectasis, pneumonia or mild pulmonary edema. Chest X-Ray 11/04/24 07:56 IMPRESSION: 1. No acute cardiopulmonary disease. Shoulder X-Ray 11/04/24 07:57 IMPRESSION: Normal alignment with age-indeterminate likely Hill-Sachs fracture trough at the posterolateral humeral head suggesting prior dislocation/relocation. Labs Labs: Laboratory Results - last 24 hr 11/04/24 11:12 Troponin I 0.119 H* D
--- NOTE | 2024-11-05 12:14 | P.CONCA_ITS ---
Assessment and Plan Assessment and plan (1) Elevated troponin: Code(s): R79.89 - Other specified abnormal findings of blood chemistry Status: Acute Plan 34-year-old man with seizure disorder presented with seizures and found to have elevated troponin Abnormal troponin -most likely in setting of his seizure -the trend is not consistent with acute coronary syndrome nor is his clinical presentation of tongue biting and shaking that led to shoulder dislocation and finding himself in his own urine Patient can follow-up with Cardiology outpatient. No further inpatient cardiac workup warranted. History of Present Illness History of Present Illness Consult date/time: 11/05/24 12:14 Requesting physician: Rufus Smith MD Reason For Visit: NSTEMI, Seizure, Shoulder Dislocation/Relocation Narrative: 34-year-old man with seizure disorder presented with seizures and found to have elevated troponin. 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 Denies any chest discomfort with physical activity. Denies any orthopnea or lower extremity swelling. Review of Systems 2 Cardiovascular: Cardiovascular: Reports as per HPI Respiratory: Respiratory: Reports as per HPI [facility] Past Medical History Medical History (Updated 11/04/24 @ 15:15 by Rufus Smith MD) Seizure disorder Social History Social History (Updated 11/04/24 @ 09:09 by Heaven Rodas MD) Social History: Previously lived in [place] Smoking status: Former smoker Tobacco type: e-cigarettes/vaping Smoking end date: 08/26/24 Additional smoking assessment comments: 1 cartridge Alcohol intake: never Substance use: never Substance use type: does not use Do You Feel Safe in your Home?: Yes Lack of Transportation: No Lack of Food: Never True Current Housing: I Have Housing Concerned About Future Housing: No Difficulty Paying Gas/Electric Bills: No Difficulty Paying for Meds: No Currently Unemployed: No Education: Associate Degree Difficulty w/ Childcare or Family Care: No Occupation/Education: occupation Additional occupation/education comments: 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 [employer] Spiritual care concerns: No Meds Home Medications and Allergies Home Medications ?Medication ?Instructions ?Recorded ?Confirmed ?Type albuterol sulfate 90 mcg/actuation 1 inh inhalation QID PRN shortness 01/10/24 11/04/24 Rx aerosol inhaler of breath or wheezing #6.7 grams aspirin 325 mg capsule 325 mg PO DAILY 11/04/24 11/04/24 History levetiracetam 500 mg tablet 500 mg PO DAILY 11/04/24 11/04/24 History ([place]) Allergies Allergy/AdvReac Type Severity Reaction Status Date / Time No Known Allergies Allergy Verified 11/04/24 12:14 Vital Signs Vital Signs - 24 hr 11/04/24 14:00 11/04/24 14:05 11/04/24 14:54 Temperature 36.9 C Pulse Rate 98 97 91 Respiratory Rate 19 20 Blood Pressure 140/77 122/81 Pulse Oximetry 95 100 Oxygen Delivery 11/04/24 16:00 11/04/24 16:00 11/04/24 18:00 Temperature 36.8 C Pulse Rate 102 H 98 101 H Respiratory Rate 24 H Blood Pressure 135/87 Pulse Oximetry 98 Oxygen Delivery 11/04/24 20:00 11/04/24 20:00 11/04/24 20:00 Temperature 36.9 C Pulse Rate 87 93 93 Respiratory Rate 22 H 22 H Blood Pressure 149/72 H Pulse Oximetry 97 97 Oxygen Delivery Room Air 11/04/24 21:53 11/04/24 23:33 11/04/24 23:33 Temperature Pulse Rate 86 82 82 Respiratory Rate 22 H Blood Pressure Pulse Oximetry 97 Oxygen Delivery Room Air 11/04/24 23:33 11/05/24 02:00 11/05/24 03:34 Temperature 36.6 C Pulse Rate 77 84 64 Respiratory Rate 18 22 H Blood Pressure 145/81 H Pulse Oximetry 95 97 Oxygen Delivery Room Air 11/05/24 03:34 11/05/24 04:00 11/05/24 05:52 Temperature 36.9 C Pulse Rate 64 84 88 Respiratory Rate 20 Blood Pressure 138/81 Pulse Oximetry 98 Oxygen Delivery 11/05/24 07:22 11/05/24 08:00 11/05/24 08:00 Temperature 37.1 C Pulse Rate 93 93 98 Respiratory Rate 20 20 Blood Pressure 148/94 H Pulse Oximetry 97 97 Oxygen Delivery Room Air 11/05/24 10:00 11/05/24 11:27 11/05/24 11:42 Temperature 36.4 C L Pulse Rate 76 93 Respiratory Rate 20 Blood Pressure 154/85 H Pulse Oximetry 96 95 Oxygen Delivery Room Air Exam 2 Const: General: comfortable HENMT: Mouth: Yes moist mucous membranes Eyes: EOM: EOMs intact bilaterally Neck: Neck: no JVD Resp: Effort & Inspection: normal respiratory effort Auscultation: clear to auscultation bilaterally Cardio: Rate: regular rate Rhythm: regular rhythm Heart sounds: no gallops, no murmurs and no rubs Extrem: General: no pedal edema Results Labs and Meds 11/04/24 05:18 11/04/24 05:18 Lab results: Intake and Output 11/04/24 11/05/24 11/05/24 23:59 07:59 15:59 Intake Total 440 400 720 Output Total 300 Balance 140 400 720 Intake: Oral 440 400 720 Output: Urine 300 Other: # Unmeasured Voids 2 Patient Weight 11/05/24 23:59 Weight 165 kg
--- NOTE | 2024-11-05 12:29 | PM.DS ---
DS: Admitting Diagnosis Discharge Date 11/05/2024 Admitting Diagnosis Seizure DS: Discharge Diagnosis Discharge Diagnosis (1) Hill-Sachs fracture: Code(s): S42.293A - Other displaced fracture of upper end of unspecified humerus, initial encounter for closed fracture Status: Acute (2) Dislocation of shoulder, left, closed: Code(s): S43.005A - Unspecified dislocation of left shoulder joint, initial encounter Status: Acute (3) Seizure: Code(s): R56.9 - Unspecified convulsions Status: Acute (4) Ground glass opacity present on imaging of lung: Code(s): R91.8 - Other nonspecific abnormal finding of lung field Status: Acute (5) Elevated troponin: Code(s): R79.89 - Other specified abnormal findings of blood chemistry Status: Acute DS: Summary Hospital Course Hospital Course: Patient is a 34-year-old male who presented to the ER with complaint of having seizure last night. He stated he always gets seizure at night. When he woke up he found himself on the floor had pain in his left shoulder due to shoulder dislocation was incontinent of urine and also bit his tongue. He has been diagnosed with seizure disorder since his been at [place] from which he moved last year. His prescription is 1500 mg of Keppra twice a day however he has been taking only 500 mg at night since he has been prescribed as he states the higher dose of Keppra makes him feel weird. Furthermore he also has stopped taking his Keppra altogether since past 2 weeks because he has been running out of the prescription he has seen someone here however has not followed up with her recently. He looked up how to relocate his shoulder online and date himself this morning after which he feels better. He had recurrent shoulder dislocation also related to his seizure episodes in the past. On ER evaluation his vitals were stable. Laboratory evaluation showed normal WBC hemoglobin was 15.4 Chem panel was unremarkable D-dimer came back elevated. Troponin also came back elevated at 0.168 lactate was normal urinalysis was negative for infection. Influenza RSV COVID swab was negative. Repeat troponin was 0.172 which remains flat. Chest x-ray showed no acute cardiopulmonary disease because of elevated D-dimer chest CT was performed which showed no pulmonary embolism. Mild ground-glass opacity in the right upper lobe which could represent atelectasis pneumonia or mild pulmonary edema. Shoulder x-ray was done which showed normal alignment with age indeterminate likely healed sacs fracture trough at the posterolateral humeral head suggesting prior dislocation/relocation. EKG showed normal sinus rhythm with no acute changes. This was compared with previous EKG and was unchanged. He is admitted in this setting for further treatment. Elevated troponin with flat trend could be related to seizure. No prior history of coronary artery disease. Continue on aspirin. Cardiology has been consulted. no fruther cardiac recs. echo unremarkable. Seizure disorder with breakthrough seizures likely related to noncompliance with his seizure medication. He states 1500 twice a day Keppra makes him feel weird. Will keep him out 500 mg b.i.d.. He seizure seems to be controlled on 500 daily dose prior to this. Follow-up with neurology as an outpatient basis Left shoulder dislocation orthopedic consultation continue on sling. Follow-up with Ortho as an outpatient basis Ground-glass opacities suggesting pneumonia very minimal respiratory symptoms. Currently on ceftriaxone and azithromycin. Oral at discharge DVT prophylaxis Lovenox Code status full code Time Spent with Patient Time attestation: Total time spent providing and/or coordinating discharge services: 35 minutes Exam Narrative: GENERAL: Well-appearing, well-nourished, and in no acute distress. HEAD: Normocephalic, atraumatic. EYES: Non injected, non icteric ENT: Nares clear, no rhinorrhea or epistaxis. Mild superficial tongue trauma bilaterally, no active bleeding. NECK: Supple. CHEST: No respiratory distress. Lungs clear to auscultation bilaterally without appreciable crackles/wheezes. HEART: Regular rate and rhythm. ABDOMEN: Soft, nondistended. Obese. EXTREMITIES: Normal range of motion. No lower extremity edema. Shoulders grossly symmetric sling in place SKIN: Warm, dry, no rash. NEURO: No focal deficits. Alert and oriented x3. PSYCH: Normal mood and affect. DS: Data Imaging Radiologist's impression: ITS Impressions Chest CTA 11/04/24 07:51 IMPRESSION: 1. No pulmonary embolism. 2. Mild groundglass opacities in the right upper lobe which could represent atelectasis, pneumonia or mild pulmonary edema. Chest X-Ray 11/04/24 07:56 IMPRESSION: 1. No acute cardiopulmonary disease. Shoulder X-Ray 11/04/24 07:57 IMPRESSION: Normal alignment with age-indeterminate likely Hill-Sachs fracture trough at the posterolateral humeral head suggesting prior dislocation/relocation. Discharge Plan Discharge Attending physician on discharge: Rufus Smith Consulting providers: Miguel Angel Elliott; Osman Hernandez Discharging Clinician: Rufus Smith Anticipated Discharge Date/Time: 11/05/24 12:31 Patient Disposition: Home, Self-Care Activity: as tolerated Diet: heart healthy Discharge Instructions: Need sleep study as an outpatient basis No driving for at least 6 months seizure-free Use of sling for the shoulder when up Patient Instructions: Antibiotic Form Patient Language: Guamanian Stand Alone Forms: General Discharge Information Follow-up/Referrals: Osamn Hernandez MD [Physician] - 4 Weeks Miguel Angel Elliott MD [Physician] - 2 Weeks (2-3 weeks. Call [phone] for appointment.) UNKNOWN,DOCTOR [Primary Care Provider] - 1 Week Discharge Medications: New azithromycin 500 mg tablet 500 mg PO DAILY 3 Days Qty: 3 0RF cefdinir 300 mg capsule 300 mg PO Q12H Qty: 10 0RF Continued albuterol sulfate 90 mcg/actuation HFA aerosol inhaler 1 inh inhalation QID PRN (Reason: shortness of breath or wheezing) Qty: 6.7 0RF aspirin 325 mg capsule 325 mg PO DAILY Changed levetiracetam [Keppra] 500 mg tablet 500 mg PO BID Qty: 60 0RF Patient Comments: Pt states he does not take as prescribed, only takes one tab daily at night Date of admission: 11/04/24 09:15 Primary Care Provider: UNKNOWN,DOCTOR Admitting Provider: Madelin Leung Attending physician on admission: Madelin Leung Condition: Stable
--- NOTE | 2024-11-05 17:22 | P.CONOP_ITS ---
Assessment and Plan Assessment and plan (1) Dislocation of shoulder, left, closed: Qualifiers: Encounter type: initial encounter Qualified Code(s): S43.005A - Unspecified dislocation of left shoulder joint, initial encounter Code(s): S43.005A - Unspecified dislocation of left shoulder joint, initial encounter Status: Acute Assessment and Plan: 34-year-old with seizure disorder and report of shoulder dislocation at home. Patient states he relocated the shoulder on his own. Radiographs here at the emergency room show a well reduced shoulder without any acute changes. No fracture noted. On exam he is neurovascular intact. He has minimal pain. He is using his sling. We reviewed activity precautions status post shoulder dislocation. May use sling when he is up. May remove for rest, hygiene and gentle range of motion. Conservative treatment ice and anti-inflammatories. May discharge from hospital when stable from his medical conditions. Follow-up in orthopedic office in 2-3 weeks. History of Present Illness HPI Consult date: 11/05/24 Requesting physician: Rufus Smith MD Chief complaint: Shoulder Dislocation Narrative: 34-year-old gentleman admitted through the emergency room for post seizure and history of left shoulder dislocation. Patient is [id number]. Has a seizure disorder. Yesterday had seizure and found to have left shoulder dislocation. This was noted at home. He looked up how to reduce this and self reduced shoulder. Complains of minimal pain left shoulder at this time. Denies numbness or tingling. Has a history of right shoulder dislocation after previous seizure several years ago. Review of Systems 2 Constitutional: Constitutional: Denies fever(s) Eyes: Eyes: Denies blurry vision ENT: Reports Normal hearing present Cardiovascular: Cardiovascular: Denies chest pain and Denies dyspnea Respiratory: Respiratory: Denies dyspnea and Denies wheezing Gastrointestinal: Gastrointestinal: Denies abdominal pain Genitourinary: Genitourinary: Denies urinary urgency Musculoskeletal: Musculoskeletal: Reports as per HPI and Denies numbness Integumentary/Breasts: Skin/Breast: Denies changing lesions and Denies sores Neurologic: Reports Normal hearing present, Denies behavioral changes, Denies confusion, Denies numbness and Denies convulsions Psychiatric: Psychiatric: Denies behavioral changes, Denies confusion and Denies hallucinations Endocrine: Endocrine: Denies heat intolerance Hematologic/Lymphatic: Hematologic/Lymphatic: Denies easy bleeding Allergic/Immunologic: Allergic/Immunologic: Denies wheezing [facility] Past Medical History Medical History Seizure disorder Social History Social History Social History: Previously lived in [place] Smoking status: Former smoker Tobacco type: e-cigarettes/vaping Smoking end date: 08/26/24 Additional smoking assessment comments: 1 cartridge Alcohol intake: never Substance use: never Substance use type: does not use Do You Feel Safe in your Home?: Yes Lack of Transportation: No Lack of Food: Never True Current Housing: I Have Housing Concerned About Future Housing: No Difficulty Paying Gas/Electric Bills: No Difficulty Paying for Meds: No Currently Unemployed: No Education: Associate Degree Difficulty w/ Childcare or Family Care: No Occupation/Education: occupation Additional occupation/education comments: 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 [employer] Spiritual care concerns: No Meds Home Medications and Allergies Home Medications ?Medication ?Instructions ?Recorded ?Confirmed ?Type albuterol sulfate 90 mcg/actuation 1 inh inhalation QID PRN shortness 01/10/24 11/04/24 Rx aerosol inhaler of breath or wheezing #6.7 grams aspirin 325 mg capsule 325 mg PO DAILY 11/04/24 11/04/24 History levetiracetam 500 mg tablet 500 mg PO DAILY 11/04/24 11/04/24 History ([place]) Allergies Allergy/AdvReac Type Severity Reaction Status Date / Time No Known Allergies Allergy Verified 11/04/24 12:14 Vital Signs Vital Signs - 24 hr 11/04/24 18:00 11/04/24 20:00 11/04/24 20:00 Temperature 98.5 F Pulse Rate 101 H 87 93 Respiratory Rate 22 H 22 H Blood Pressure 149/72 H Pulse Oximetry 97 97 Oxygen Delivery Room Air 11/04/24 20:00 11/04/24 21:53 11/04/24 23:33 Temperature Pulse Rate 93 86 82 Respiratory Rate 22 H Blood Pressure Pulse Oximetry 97 Oxygen Delivery Room Air 11/04/24 23:33 11/04/24 23:33 11/05/24 02:00 Temperature 97.8 F Pulse Rate 82 77 84 Respiratory Rate 18 Blood Pressure 145/81 H Pulse Oximetry 95 Oxygen Delivery 11/05/24 03:34 11/05/24 03:34 11/05/24 04:00 Temperature 98.4 F Pulse Rate 64 64 84 Respiratory Rate 22 H 20 Blood Pressure 138/81 Pulse Oximetry 97 98 Oxygen Delivery Room Air 11/05/24 05:52 11/05/24 07:22 11/05/24 08:00 Temperature 98.7 F Pulse Rate 88 93 93 Respiratory Rate 20 20 Blood Pressure 148/94 H Pulse Oximetry 97 97 Oxygen Delivery Room Air 11/05/24 08:00 11/05/24 10:00 11/05/24 11:27 Temperature Pulse Rate 98 76 Respiratory Rate Blood Pressure Pulse Oximetry 96 Oxygen Delivery Room Air 11/05/24 11:42 11/05/24 12:00 11/05/24 16:00 Temperature 97.5 F L Pulse Rate 93 93 77 Respiratory Rate 20 20 Blood Pressure 154/85 H Pulse Oximetry 95 97 Oxygen Delivery Room Air 11/05/24 16:00 11/05/24 16:09 Temperature 98.2 F Pulse Rate 93 82 Respiratory Rate 20 20 Blood Pressure 166/79 H Pulse Oximetry 97 98 Oxygen Delivery Room Air Exam 2 Const: General: healthy appearing; No in distress or confusion O rientation/consciousness: oriented to person, oriented to place, oriented to time and No confusion HENMT: Head: normal to inspection, normocephalic and atraumatic Eyes: Conjunctivae: conjunctivae normal Sclera: sclerae normal Neck: Neck: supple and nontender Resp: Effort & Inspection: normal respiratory effort and no audible wheezes Cardio: Rate: regular rate Rhythm: regular rhythm Skin: General skin exam: no rashes or lesions noted Neuro: General: oriented to person, oriented to place, oriented to time and No confusion Extrem: Right upper extremity: shoulder/upper arm axillary nerve sensory function normal, normal ROM (FF 130, Abd 120, ER 70, IR T7) and other (RC 5/5, Bicep 5/5, Deltoid 5/5, ER 5/5); no tenderness and no swelling, elbow/forearm normal ROM; no tenderness and no swelling, wrist normal ROM and radial pulse present; no tenderness and Extremity exam: right hand neuromotor exam normal wrist extension normal, thumb opposition normal, thumb IP flexion normal and fingers 2-5 ABduction normal, neurosensory exam normal radial nerve sensory function normal, ulnar nerve sensory function normal, median nerve sensory function normal and digital nerve sensory function normal and vascular exam radial pulse present and normal capillary refill; no tenderness, no swelling and no crepitus Left upper extremity: normal to inspection, shoulder/upper arm inspection abnormal, tenderness of the A-C joint, of the proximal humerus, over the subacromial bursa and other (anterolateral acromion, gh joint), axillary nerve sensory function normal, abnormal ROM pain with active ROM in ABduction and in internal rotation, pain with passive ROM in internal rotation and external rotation- and with range as follows (FF 100, Abd 80, ER 30, IR hip) and other (RC 4/5, Bicep 4/5, Deltoid 5-/5, ER 4/5); no swelling, elbow/forearm normal ROM; no tenderness and no swelling, wrist normal ROM and radial pulse present; no tenderness and hand neuromotor exam normal Details: wrist extension normal and thumb IP flexion normal, neurosensory exam normal Details: radial nerve sensory function normal, ulnar nerve sensory function normal and median nerve sensory function normal, tendon exam normal Location: of all digits and vascular exam normal capillary refill; no tenderness Right lower extremity: n ormal to inspection Left lower extremity: normal to inspection Psych: Affect: normal affect Results Labs 11/04/24 05:18 11/04/24 05:18 Labs: H & H 11/04/24 Range/Units 05:18 Hgb 15.4 (14.0-18.0) g/dL Hct 43.3 (42.0-52.0) % All other labs normal.
[2024-11-05] MEDS: ENOXAPARIN 40 MG/0.4 ML SYRINGE SUB-Q (18:14)
[2024-11-06 10:53] LABS: Levetiracetam Keppra 4.3 mcg/mL (6.0-46.0)
== END 2024-11-05 18:28 | disposition home or self-care (01) ==
LOC: ANHED 05:32 → ANHIMU 10:08
PROVIDERS: Admitting Provider Internal Medicine; Emergency Provider Student in an Organized Health Care Education/Training Program; Visit Provider Internal Medicine
DX: G40.909 Epilepsy, unspecified, not intractable, without status epilepticus (principal); Z91.148 Patient's other noncompliance with medication regimen for other reason; S43.005A Unspecified dislocation of left shoulder joint, initial encounter; R91.8 Other nonspecific abnormal finding of lung field; R79.89 Other specified abnormal findings of blood chemistry; R74.01 Elevation of levels of liver transaminase levels; R06.02 Shortness of breath; Z20.822 Contact with and (suspected) exposure to COVID-19; Z87.891 Personal history of nicotine dependence; Z79.51 Long term (current) use of inhaled steroids; Z79.82 Long term (current) use of aspirin; Z79.899 Other long term (current) drug therapy
CPT/HCPCS: 36415; 71045; 71275; 73030; 80053; 80177; 80307; 81001; 83605; 83880; 84484; 85025; 85380; 87637; 93005; 93306; 96365; 96367; 96372; 96374; 96375; 99285; A4565; A9270; G0378; J0456; J0696; J1650; J1953; Q9967

== ENCOUNTER 2024-11-17 03:29 | Emergency (ER) | payer SELFPAY ==
[2024-11-17] VITALS (10 sets, daily range): BP systolic 122–174; BP diastolic 76–104; PULSE 68–121; RESP 15–23; TEMP 36.4; O2SAT 95–98
--- NOTE | ~2024-11-17 | CT_ITS ---
EXAMINATION: CTA chest PE protocol DATE: 11/17/2024 08:00 INDICATION: Chest pain TECHNIQUE: Computed tomography (CT) pulmonary angiogram of the chest was performed with 100 mL Omnipa que-350 intravenous contrast. Additional 3D reconstructions utilizing coronal maximum intensity proje ction (MIP) were performed. Automated exposure control and iterative reconstruction technique were em ployed. The dose-length product was 1113.65 mGy-cm. COMPARISON: 11/14/2024 FINDINGS: Mild scattered motion artifact, greatest at the lung bases which does not significantly limit evaluat ion. No pulmonary embolism. The previously seen groundglass opacities in right upper lobe have resolv ed. No pneumonia, pulmonary edema, pleural effusion or pneumothorax. Heart size is normal. No pericar dial effusion. Thoracic aorta is normal in caliber with no dissection. No pathologically enlarged tho racic lymphadenopathy. Diffuse hepatic steatosis. Mild superior endplate compression fractures at a f ew levels the mid thoracic spine. IMPRESSION: 1. No pulmonary embolism or other acute cardiopulmonary disease. 2. Diffuse hepatic steatosis. Reviewed, dictated and finalized at location A. UX ENGINEER
--- NOTE | ~2024-11-17 | XR_ITS ---
EXAMINATION: XR chest 2V DATE: 11/17/2024 03:52 INDICATION: Chest pain TECHNIQUE: PA and lateral views of the chest were obtained. COMPARISON: Chest radiograph and CT dated 11/04/2024 FINDINGS: The lungs remain clear with no focal airspace opacities, pulmonary edema, pleural effusion or pneumot horax. The cardiomediastinal silhouette is normal. Visualized bones and soft tissues are unremarkable . IMPRESSION: 1. No acute cardiopulmonary disease. Reviewed, dictated and finalized at location A. HOUSE CONSULTANT
--- NOTE | 2024-11-17 03:29 | ECG_ITS ---
Test Date: 2024-11-17 03:36:12 Measurements Intervals [place] Rate: 108 P: 62 RI: 145 QRS: 57 QRSD: 90 T: 52 QT: 327 QTc: 439 Interpretive Statements SINUS TACHYCARDIA POSSIBLE LEFT ATRIAL ENLARGEMENT DELAYED PRECORDIAL R/S TRANSITION BASELINE WANDER- I, II, III, AVL, AVF, V1-V6 ABNORMAL ECG Compared to ECG 11/04/2024 12:24:33 HEART RATE HAS INCREASED Electronically Signed On 11-17-2024 06:41:49 LOCATE TECHNICIAN by Tito Villatoro D.O.
--- OUTSIDE RECORDS SUMMARY | 2024-11-17 03:30 | XMS_ITS | CONTINUITY OF CARE DOCUMENT ---
Author Name elenamikyeric Address Unknown Organization [facility] Address [address] [place] [address] [address] [place] [address] Phone [phone] Care Team Providers Care Motor Vehicle Examiner Name Role Phone Farzad King MD Unavailable [phone] EMELYN PURCELL MD Unavailable [phone] EMELYN PURCELL MD Unavailable [phone] INSURANCE PROVIDERS Payer name Policy type / Coverage type [place] red democrat ID [facility] [id number] Other [id number]
[2024-11-17 03:53] LABS: Basophils Absolute Auto 0.1 K/mm3 (0.0-0.1); Basophils Percent Auto 0.9 % (0.2-1.2); Eosinophils Absolute Auto 0.3 K/mm3 (0-0.3); Eosinophils Percent Auto 4.2 % (0-4.4); Hemoglobin 16.3 g/dL (14.0-18.0); Immature Granulocyte Absolute 0.07 K/mm3 (0.00-0.031); Lymphocytes Absolute Auto 2.46 K/mm3 (0.9-3.2); Lymphocytes Percent Auto 35.2 % (18.3-44.2); Mean Corpuscular HGB Conc 36.2 g/dl (32-36); Mean Corpuscular Hemoglobin 28.4 pg (26-34); Mean Corpuscular Volume 78.5 fl (80-100); Mean Platelet Volume 10.1 fl (7.4-10.4); Monocytes Absolute Auto 0.5 K/mm3 (0.1-0.6); Neutrophils Absolute Auto 3.6 K/mm3 (1.3-6.7); Neutrophils Percent Auto 51.7 % (45.5-73.1); Platelet Count Result 264 k/mm3 (150-375); Red Blood Count 5.73 M/mm3 (4.6-6.20)
[2024-11-17 04:28] LABS: Influenza A QL RT-PCR Negative (Negative); Influenza B QL RT-PCR Negative (Negative); RSV RNA, RT-PCR Negative (Negative); SARS-CoV-2 RNA PCR Negative (Negative)
[2024-11-17 04:48] LABS: Prothrombin Time 12.3 Seconds (11.1-14.7)
[2024-11-17 05:25] LABS: INR 0.9
[2024-11-17 05:26] LABS: Partial Thromboplastin Time 30.2 Seconds (22.3-36.8)
[2024-11-17 05:31] LABS: Alanine Aminotransferase 67 U/L (6-50); Albumin Level 4.2 g/dL (3.5-5.1); Alkaline Phosphatase 66 U/L (38-126); Anion Gap 9 mmol/L (4-12); Aspartate Amino Transferase 51 U/L (17-59); Bilirubin,Total 0.5 mg/dL (0.2-1.3); Blood Urea Nitrogen 13 mg/dL (9-20); Calcium 9.2 mg/dL (8.4-10.2); Carbon Dioxide 24 mmol/L (22-30); Chloride 106 mmol/L (98-107); Estimated CRCL calculation 133 ml/min; Estimated Glomerular Filt Rate > 60; Glucose 104 mg/dL (65-110); Lipase 378 U/L (23-300); Potassium 4.3 mmol/L (3.4-5.0); Sodium 139 mmol/L (137-145)
[2024-11-17 05:46] LABS: Troponin I 0.027 ng/mL (0.000-0.034)
--- OUTSIDE RECORDS SUMMARY | 2024-11-17 07:19 | XMS_ITS | CONTINUITY OF CARE DOCUMENT ---
Author Name elenamikyeric Address Unknown Organization [facility] Address [address] [place] [address] [address] [place] [address] Phone [phone] Care Team Providers Care Carpet Yarn Winder Operator Name Role Phone Farzad King MD Unavailable [phone] EMELYN PURCELL MD Unavailable [phone] EMELYN PURCELL MD Unavailable [phone] INSURANCE PROVIDERS Payer name Policy type / Coverage type [place] red republican ID [facility] [id number] Other [id number]
--- NOTE | 2024-11-17 07:45 | ED_ITS ---
HPI - General Adult General Chief complaint: Chest Pain Stated complaint: chest pain Time Seen by Provider: 11/17/24 06:55 History of Present Illness HPI narrative: 34-year-old male presents to the emergency department for evaluation for heart palpitations that were occurring during the night and were no stable when he woke up. Patient states that he felt that his heart was racing but was unable to take her pulse. Patient does have a prior history of seizures but states he has been taking his Keppra and does not think he had a seizure. Patient states while he tried to get himself relaxed he then began having onset of chest pain and shortness of breath. That is when the patient decided to come and be evaluated. At time of initial evaluation patient states he feels back to his baseline. Patient denies any current chest pain shortness of breath or heart palpitations. Patient did have elevated heart rate on his initial vital signs. Related Data Home Medications ?Medication ?Instructions ?Recorded ?Confirmed ?Last Taken ?Type aspirin 325 mg capsule 325 mg PO DAILY 11/04/24 11/04/24 11/04/24 History Allergies Allergy/AdvReac Type Severity Reaction Status Date / Time No Known Allergies Allergy Verified 11/04/24 12:14 Review of Systems 2 Review of Systems: All systems reviewed & are unremarkable except as noted in HPI and below PMFSH Past Medical History Medical History Seizure disorder Social History Social History Social History: Previously lived in [place] Smoking status: Former smoker Tobacco type: e-cigarettes/vaping Smoking end date: 08/26/24 Additional smoking assessment comments: 1 cartridge Alcohol intake: never Substance use: never Substance use type: does not use Do You Feel Safe in your Home?: Yes Lack of Transportation: No Lack of Food: Never True Current Housing: I Have Housing Concerned About Future Housing: No Difficulty Paying Gas/Electric Bills: No Difficulty Paying for Meds: No Currently Unemployed: No Education: Associate Degree Difficulty w/ Childcare or Family Care: No Occupation/Education: occupation 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 HEAD: normocephalic, atraumatic. EYES: PERRLA/EOMI, conjunctivae clear. NOSE: Normal no drainage EARS:TMS clear with good light reflex. THROAT: Pharynx clear, no exudate. NECK: Supple. No adenopathy, no masses. RESPIRATORY: Airway patent, respirations nonlabored. Clear to auscultation bilaterally, no rales, rhonchi, wheezing. CARDIOVASCULAR: Regular rate and rhythm without murmurs rubs or gallops. ABDOMINAL: Soft, nontender, nondistended, normal bowel sounds MUSCULOSKELETAL: Moves all extremities. Strength/ROM intact, No edema, No calf tenderness. NEURO: Alert. Cranial nerves II through XII intact. Good gait. Good coordination SKIN: Warm, dry. Normal Color Course Vital Signs Vital signs: Vital Signs Temperature 97.5 F L 11/17/24 03:41 Pulse Rate 121 H 11/17/24 03:41 Respiratory Rate 20 11/17/24 03:41 Blood Pressure 174/104 H 11/17/24 03:41 Pulse Oximetry 95 11/17/24 03:41 Temperature 97.5 F L 11/17/24 03:41 Pulse Rate 68 11/17/24 08:45 Respiratory Rate 18 11/17/24 08:45 Blood Pressure 129/84 11/17/24 08:45 Pulse Oximetry 98 11/17/24 08:45 Oxygen Delivery Room Air 11/17/24 05:18 Medical Decision Making [facility] Narrative Medical decision making narrative: 34-year-old male presents emergency department for evaluation for episode increased heart rate, chest pain and shortness of breath. Patient did is no longer tachycardic, patient is afebrile with no leukocytosis and hemoglobin of 16.3. INR 0.9. Patient has no acute abnormalities on his CMP and patient did have an initial troponin that was not elevated. Patient was negative for influenza RSV and for COVID. Chest x-ray showed no acute abnormality. PE study was ordered to evaluate for pulmonary embolism and troponin will be repeated. Differential Diagnosis Differential Diagnosis: Pulmonary embolism, heart palpitations, tachycardia, chest pain, shortness of breath, ACS, seizure Medical Records Medical records reviewed: Yes I reviewed the external patient's medical records. Vital Signs Vital Signs: Vital Signs Temperature 97.5 F L 11/17/24 03:41 Pulse Rate 121 H 11/17/24 03:41 Respiratory Rate 20 11/17/24 03:41 Blood Pressure 174/104 H 11/17/24 03:41 Pulse Oximetry 95 11/17/24 03:41 Temperature 97.5 F L 11/17/24 03:41 Pulse Rate 68 11/17/24 08:45 Respiratory Rate 18 11/17/24 08:45 Blood Pressure 129/84 11/17/24 08:45 Pulse Oximetry 98 11/17/24 08:45 Oxygen Delivery Room Air 11/17/24 05:18 Lab Data Lab results reviewed: Yes I reviewed the patient's lab results. 11/17/24 03:45 11/17/24 05:13 Labs: Lab Results 11/17/24 11/17/24 11/17/24 Range/Units 03:45 05:13 08:11 WBC 7.0 (4.5-10.0) K/mm3 RBC 5.73 (4.6-6.20) M/mm3 Hgb 16.3 (14.0-18.0) g/dL Hct 45.0 (42.0-52.0) % MCV 78.5 L (80-100) fl MCH 28.4 (26-34) pg MCHC 36.2 H (32-36) g/dl RDW 14.0 (11.5-14.5) % Plt Count 264 (150-375) k/mm3 MPV 10.1 (7.4-10.4) fl Immature Gran % (Auto) 1.0 H (0-0.5) % Neut % (Auto) 51.7 (45.5-73.1) % Lymph % (Auto) 35.2 (18.3-44.2) % [place] % (Auto) 7.0 (2.6-8.5) % Eos % (Auto) 4.2 (0-4.4) % Baso % (Auto) 0.9 (0.2-1.2) % Lymph # (Auto) 2.46 (0.9-3.2) K/mm3 [place] # (Auto) 0.5 (0.1-0.6) K/mm3 Eos # (Auto) 0.3 (0-0.3) K/mm3 Baso # (Auto) 0.1 (0.0-0.1) K/mm3 Abs Immat Gran (auto) 0.07 H (0.00-0.031) K/mm3 Absolute Neuts (auto) 3.6 (1.3-6.7) K/mm3 Absolute Nucleated RBC 0.000 (0.0-0.012) K/mm3 Nucleated RBC % 0.0 (0.0-0.2) % PT 12.3 (11.1-14.7) Seconds INR 0.9 APTT 30.2 (22.3-36.8) Seconds Sodium 139 (137-145) mmol/L Potassium 4.3 (3.4-5.0) mmol/L Chloride 106 (98-107) mmol/L Carbon Dioxide 24 (22-30) mmol/L Anion Gap 9 (4-12) mmol/L BUN 13 (9-20) mg/dL Creatinine 1.09 (0.7-1.3) mg/dL Estim Creat Clear Calc 133 ml/min Estimated GFR > 60 (59 - ) Glucose 104 (65-110) mg/dL Calcium 9.2 (8.4-10.2) mg/dL Total Bilirubin 0.5 (0.2-1.3) mg/dL AST 51 (17-59) U/L ALT 67 H (6-50) U/L Alkaline Phosphatase 66 (38-126) U/L Troponin I 0.027 0.029 (0.000-0.034) ng/mL Total Protein 7.0 (6.3-8.2) g/dL Albumin 4.2 (3.5-5.1) g/dL Lipase 378 H (23-300) U/L Influenza A (RT-PCR) Negative (Negative) Influenza B (RT-PCR) Negative (Negative) RSV (RT-PCR) Negative (Negative) SARS-CoV-2 RNA (RT-PCR) Negative (Negative) Imaging Data Radiologist's impression: Impressions Chest X-Ray 11/17/24 06:42 IMPRESSION: 1. No acute cardiopulmonary disease. Chest CTA 11/17/24 08:15 IMPRESSION: 1. No pulmonary embolism or other acute cardiopulmonary disease. 2. Diffuse hepatic steatosis. Discharge Plan Discharge Clinical Impression: Heart palpitations Patient Disposition: Home, Self-Care Condition: Stable Instructions: Antibiotic Form Additional Instructions: Have close follow-up with your primary care physician. If you have any worsening symptoms then please call or return to the emergency department. Patient Language: Bulgarian Prescriptions: No Action albuterol sulfate 90 mcg/actuation HFA aerosol inhaler 1 inh inhalation QID PRN (Reason: shortness of breath or wheezing) Qty: 6.7 0RF aspirin 325 mg capsule 325 mg PO DAILY azithromycin 500 mg tablet 500 mg PO DAILY 3 Days Qty: 3 0RF cefdinir 300 mg capsule 300 mg PO Q12H Qty: 10 0RF levetiracetam [Keppra] 500 mg tablet 500 mg PO BID Qty: 60 0RF Patient Comments: Pt states he does not take as prescribed, only takes one tab daily at night Follow-up/Referrals: PHYSICIAN,DISK AND TAPE MACHINE TENDER [Primary Care Provider] - Stand Alone Forms: Work/School Release IP
--- NOTE | 2024-11-17 08:13 | ECG_ITS ---
Test Date: 2024-11-17 08:08:01 Measurements Intervals [place] Rate: 82 P: 60 DE: 153 QRS: 54 QRSD: 94 T: 52 QT: 372 QTc: 436 Interpretive Statements SINUS RHYTHM DELAYED PRECORDIAL R/S TRANSITION BASELINE ARTIFACT- I, II, AVR BORDERLINE ECG Compared to ECG 11/17/2024 03:36:12 HEART RATE HAS DECREASED Electronically Signed On 11-17-2024 09:03:29 KILN FURNITURE CASTER by Tito Villatoro D.O.
[2024-11-17 08:49] LABS: Troponin I 0.029 ng/mL (0.000-0.034)
== END 2024-11-17 09:18 | disposition home or self-care (01) ==
PROVIDERS: Emergency Medicine; Emergency Provider Emergency Medicine
DX: R00.2 Palpitations (principal); G40.909 Epilepsy, unspecified, not intractable, without status epilepticus; Z87.891 Personal history of nicotine dependence; Z20.822 Contact with and (suspected) exposure to COVID-19; K76.0 Fatty (change of) liver, not elsewhere classified; R00.0 Tachycardia, unspecified; R94.31 Abnormal electrocardiogram [ECG] [EKG]
CPT/HCPCS: 36415; 71046; 71275; 80053; 83690; 84484; 85025; 85610; 85730; 87637; 93005; 99284; Q9967

== ENCOUNTER 2024-12-15 06:13 | Emergency (ER) | payer OTHER, SELFPAY ==
--- NOTE | ~2024-12-15 | CT_ITS ---
EXAMINATION: CT facial bones wo con DATE: 12/15/2024 07:53 INDICATION: Seizure. Facial pain. TECHNIQUE: Computed tomography (CT) of the facial bones was performed without intravenous contrast. T he dose-length product was 540.31 mGy-cm. Automated exposure control and iterative reconstruction lex hnique were employed. COMPARISON: None FINDINGS: Small left mastoid effusion. Nasal bones intact. Orbits are symmetric. Tip temporal mandibu lar joints are symmetric. No mandibular fracture. Zygomatic arches and pterygoid plates within normal limits. Visualized aspects of the cervical spine are unremarkable. No significant soft tissue abnorm ality. No foreign bodies. IMPRESSION: 1. No acute facial fracture. Reviewed, dictated and finalized at location B.
--- NOTE | ~2024-12-15 | CT_ITS ---
EXAMINATION: CT BRAIN W/O DATE: 12/15/2024 07:53 INDICATION: Seizure TECHNIQUE: Computed tomography (CT) of the head was performed without intravenous contrast. The dose- length product was 605.33 mGy-cm. Automated exposure control and iterative reconstruction technique w ere employed. COMPARISON: No prior studies for comparison. FINDINGS: Normal brain parenchymal volume for age. Normal rivas-white differentiation. No acute intrac ranial hemorrhage, infarction, mass or mass effect. No ventriculomegaly or midline shift. Midline sagittal images demonstrate a normal corpus callosum, c raniovertebral junction and sella turcica. Basilar cisterns are patent. Paranasal sinuses and mastoids are pneumatized. No depressed skull fractures. IMPRESSION: 1. No acute intracranial abnormality. Reviewed, dictated and finalized at location B.
--- OUTSIDE RECORDS SUMMARY | 2024-12-15 06:16 | XMS_ITS | CONTINUITY OF CARE DOCUMENT ---
Author Name elenamikyeric Address Unknown Organization [facility] Address [address] [place] [address] [address] [place] [address] Phone [phone] Care Team Providers Care Bridge Maintainer Name Role Phone Farzad King MD Unavailable [phone] EMELYN PURCELL MD Unavailable [phone] EMELYN PURCELL MD Unavailable [phone] INSURANCE PROVIDERS Payer name Policy type / Coverage type [place] red constitution party ID [facility] [id number] Other [id number]
[2024-12-15 06:24] VITALS: BP 156/105; PULSE 99; RESP 56; TEMP 37; O2SAT 96
[2024-12-15 06:26] VITALS: PULSE 99
[2024-12-15 06:28] VITALS: O2SAT 99
[2024-12-15 06:29] VITALS: O2SAT 99
--- NOTE | 2024-12-15 07:27 | ED_ITS ---
HPI - General Adult General Chief complaint: Seizure Stated complaint: seizure Time Seen by Provider: 12/15/24 06:57 History of Present Illness HPI narrative: 34-year-old male with history of seizures that reports are triggered by sleep apnea. Patient just recently had a sleep study but is not yet have a CPAP machine. Patient does take 500 mg of Keppra but does change the time of the day that he takes his medications. Patient does not yet have a primary care physician but did just recently get health insurance and states he has a primary care physician that he will ultimately be able to follow-up with. Patient states she had a seizure last night did injure his right face. Patient denies any other injury. Related Data Home Medications ?Medication ?Instructions ?Recorded ?Confirmed ?Last Taken ?Type aspirin 325 mg capsule 325 mg PO DAILY 11/04/24 12/15/24 12/15/24 History Allergies Allergy/AdvReac Type Severity Reaction Status Date / Time No Known Allergies Allergy Verified 12/15/24 06:23 Review of Systems 2 Review of Systems: All systems reviewed & are unremarkable except as noted in HPI and below PMFSH Past Medical History Medical History Seizure disorder Social History Social History Social History: Previously lived in [place] Smoking status: Former smoker Tobacco type: e-cigarettes/vaping Smoking end date: 08/26/24 Additional smoking assessment comments: 1 cartridge Alcohol intake: never Substance use: never Substance use type: does not use Do You Feel Safe in your Home?: Yes Lack of Transportation: No Lack of Food: Never True Current Housing: I Have Housing Concerned About Future Housing: No Difficulty Paying Gas/Electric Bills: No Difficulty Paying for Meds: No Currently Unemployed: No Education: Associate Degree Difficulty w/ Childcare or Family Care: No Occupation/Education: occupation 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 HEAD: normocephalic, right-sided facial contusion. EYES: PERRLA/EOMI, conjunctivae clear. NOSE: Normal no drainage EARS:TMS clear with good light reflex. THROAT: Pharynx clear, no exudate. NECK: Supple. No adenopathy, no masses. RESPIRATORY: Airway patent, respirations nonlabored. Clear to auscultation bilaterally, no rales, rhonchi, wheezing. CARDIOVASCULAR: Regular rate and rhythm without murmurs rubs or gallops. ABDOMINAL: Soft, nontender, nondistended, normal bowel sounds MUSCULOSKELETAL: Moves all extremities. Strength/ROM intact, No edema, No calf tenderness. NEURO: Alert. Cranial nerves II through XII intact. Good gait. Good coordination SKIN: Warm, dry. Normal Color Course Vital Signs Vital signs: Vital Signs Temperature 98.6 F 12/15/24 06:24 Pulse Rate 99 12/15/24 06:24 Respiratory Rate 56 H 12/15/24 06:24 Blood Pressure 156/105 H 12/15/24 06:24 Pulse Oximetry 96 12/15/24 06:24 Oxygen Delivery Room Air 12/15/24 06:24 Temperature 98.6 F 12/15/24 06:24 Pulse Rate 76 12/15/24 08:28 Respiratory Rate 18 12/15/24 08:28 Blood Pressure 156/93 H 12/15/24 08:28 Pulse Oximetry 97 12/15/24 08:28 Oxygen Delivery Room Air 12/15/24 06:29 Medical Decision Making MDM Narrative Medical decision making narrative: 34-year-old male present to the emergency department for evaluation after having seizure. Patient was treated with an IV dose Keppra while in the emergency department. Patient is attempting to get his outpatient follow-up and need CPAP for nighttime. Patient is currently afebrile with no leukocytosis and hemoglobin of 15.9. No acute abnormalities on his CMP. CT face and head showed no acute abnormalities. Patient was encouraged to have close follow-up with his primary care physician and with Neurology. Patient was advised to continue to get his CPAP device. Patient was educated on reasons to return to the emergency department. All questions concerns were addressed. Differential Diagnosis Differential Diagnosis: Seizure, facial injury, subdural time, subarachnoid hemorrhage Vital Signs Vital Signs: Vital Signs Temperature 98.6 F 12/15/24 06:24 Pulse Rate 99 12/15/24 06:24 Respiratory Rate 56 H 12/15/24 06:24 Blood Pressure 156/105 H 12/15/24 06:24 Pulse Oximetry 96 12/15/24 06:24 Oxygen Delivery Room Air 12/15/24 06:24 Temperature 98.6 F 12/15/24 06:24 Pulse Rate 76 12/15/24 08:28 Respiratory Rate 18 12/15/24 08:28 Blood Pressure 156/93 H 12/15/24 08:28 Pulse Oximetry 97 12/15/24 08:28 Oxygen Delivery Room Air 12/15/24 06:29 Lab Data Lab results reviewed: Yes I reviewed the patient's lab results. 12/15/24 07:32 12/15/24 07:32 Labs: Lab Results 12/15/24 Range/Units 07:32 WBC 10.0 (4.5-10.0) K/mm3 RBC 5.80 (4.6-6.20) M/mm3 Hgb 15.9 (14.0-18.0) g/dL Hct 45.3 (42.0-52.0) % MCV 78.1 L (80-100) fl MCH 27.4 (26-34) pg MCHC 35.1 (32-36) g/dl RDW 13.7 (11.5-14.5) % Plt Count 256 (150-375) k/mm3 MPV 10.7 H (7.4-10.4) fl Immature Gran % (Auto) 0.8 H (0-0.5) % Neut % (Auto) 74.1 H (45.5-73.1) % Lymph % (Auto) 14.7 L (18.3-44.2) % [place] % (Auto) 8.6 H (2.6-8.5) % Eos % (Auto) 1.2 (0-4.4) % Baso % (Auto) 0.6 (0.2-1.2) % Lymph # (Auto) 1.47 (0.9-3.2) K/mm3 [place] # (Auto) 0.9 H (0.1-0.6) K/mm3 Eos # (Auto) 0.1 (0-0.3) K/mm3 Baso # (Auto) 0.1 (0.0-0.1) K/mm3 Abs Immat Gran (auto) 0.08 H (0.00-0.031) K/mm3 Absolute Neuts (auto) 7.4 H (1.3-6.7) K/mm3 Absolute Nucleated RBC 0.000 (0.0-0.012) K/mm3 Nucleated RBC % 0.0 (0.0-0.2) % Sodium 138 (137-145) mmol/L Potassium 4.4 (3.4-5.0) mmol/L Chloride 105 (98-107) mmol/L Carbon Dioxide 24 (22-30) mmol/L Anion Gap 9 (4-12) mmol/L BUN 14 (9-20) mg/dL Creatinine 1.14 (0.7-1.3) mg/dL Estim Creat Clear Calc 85 ml/min Estimated GFR > 60 (59 - ) Glucose 128 H (65-110) mg/dL Calcium 9.1 (8.4-10.2) mg/dL Total Bilirubin 0.4 (0.2-1.3) mg/dL AST 62 H (17-59) U/L ALT 67 H (6-50) U/L Alkaline Phosphatase 63 (38-126) U/L Total Protein 8.0 (6.3-8.2) g/dL Albumin 4.5 (3.5-5.1) g/dL Imaging Data Radiologist's impression: Impressions Head CT 12/15/24 07:56 IMPRESSION: 1. No acute intracranial abnormality. Face CT 12/15/24 07:59 IMPRESSION: 1. No acute facial fracture. Discharge Plan Discharge Clinical Impression: Seizure Patient Disposition: Home, Self-Care Condition: Stable Instructions: Antibiotic Form, Recurrent Seizures in Adults (ED) Additional Instructions: You will need to have close follow-up with Neurology and with a primary care physician. Continue to get it your CPAP setup. You need to take your medications on a set schedule. If you have any worsening symptoms and please call or return to the emergency department. Patient Language: Icelandic Prescriptions: New levetiracetam [Keppra] 500 mg tablet 500 mg PO BID 30 Days Qty: 60 0RF No Action aspirin 325 mg capsule 325 mg PO DAILY levetiracetam [Keppra] 500 mg tablet 500 mg PO BID Qty: 60 0RF Patient Comments: Pt states he does not take as prescribed, only takes one tab daily at night Follow-up/Referrals: Marty,Harriet Taylor MD [Primary Care Provider] - Steffen Olivia MD [Physician] - Stand Alone Forms: Work/School Release IP
--- OUTSIDE RECORDS SUMMARY | 2024-12-15 07:29 | XMS_ITS | CONTINUITY OF CARE DOCUMENT ---
Author Name elenamikyeric Address Unknown Organization [facility] Address [address] [place] [address] [address] [place] [address] Phone [phone] Care Team Providers Care Professor Of Religious Studies Name Role Phone Farzad King MD Unavailable [phone] EMELYN PURCELL MD Unavailable [phone] EMELYN PURCELL MD Unavailable [phone] INSURANCE PROVIDERS Payer name Policy type / Coverage type [place] red green party ID [facility] [id number] Other [id number]
[2024-12-15] MEDS: SODIUM CHLORIDE 0.9% IV 1,000 ML 999 ML IV CONT (07:39)
[2024-12-15 07:45] LABS: Basophils Absolute Auto 0.1 K/mm3 (0.0-0.1); Basophils Percent Auto 0.6 % (0.2-1.2); Eosinophils Absolute Auto 0.1 K/mm3 (0-0.3); Eosinophils Percent Auto 1.2 % (0-4.4); Hematocrit 45.3 % (42.0-52.0); Hemoglobin 15.9 g/dL (14.0-18.0); Immature Granulocyte Absolute 0.08 K/mm3 (0.00-0.031); Immature Granulocyte Percent A 0.8 % (0-0.5); Lymphocytes Absolute Auto 1.47 K/mm3 (0.9-3.2); Lymphocytes Percent Auto 14.7 % (18.3-44.2); Mean Corpuscular HGB Conc 35.1 g/dl (32-36); Mean Corpuscular Hemoglobin 27.4 pg (26-34); Mean Corpuscular Volume 78.1 fl (80-100); Mean Platelet Volume 10.7 fl (7.4-10.4); Monocytes Absolute Auto 0.9 K/mm3 (0.1-0.6); Monocytes Percent Auto 8.6 % (2.6-8.5); Neutrophils Absolute Auto 7.4 K/mm3 (1.3-6.7); Neutrophils Percent Auto 74.1 % (45.5-73.1); Platelet Count Result 256 k/mm3 (150-375); Red Cell Distribution Width 13.7 % (11.5-14.5)
[2024-12-15 07:56] LABS: Alanine Aminotransferase 67 U/L (6-50); Albumin Level 4.5 g/dL (3.5-5.1); Alkaline Phosphatase 63 U/L (38-126); Anion Gap 9 mmol/L (4-12); Aspartate Amino Transferase 62 U/L (17-59); Bilirubin,Total 0.4 mg/dL (0.2-1.3); Blood Urea Nitrogen 14 mg/dL (9-20); Calcium 9.1 mg/dL (8.4-10.2); Carbon Dioxide 24 mmol/L (22-30); Chloride 105 mmol/L (98-107); Estimated CRCL calculation 85 ml/min; Estimated Glomerular Filt Rate > 60; Glucose 128 mg/dL (65-110); Potassium 4.4 mmol/L (3.4-5.0); Sodium 138 mmol/L (137-145)
[2024-12-15 08:28] VITALS: BP 156/93; PULSE 76; RESP 18; O2SAT 97
[2024-12-15] MEDS: levETIRAcetam IV 750 MG in DEXTROSE 5% 100 ML 430 MG IVPB (08:28)
== END 2024-12-15 09:40 | disposition home or self-care (01) ==
PROVIDERS: Emergency Provider Emergency Medicine; PCP Student in an Organized Health Care Education/Training Program
DX: G40.909 Epilepsy, unspecified, not intractable, without status epilepticus (principal); Z87.891 Personal history of nicotine dependence; G47.30 Sleep apnea, unspecified
CPT/HCPCS: 36415; 70450; 70486; 80053; 85025; 96361; 96374; 99284; J1953; J7030

== ENCOUNTER 2025-01-12 07:52 | Emergency (ER) | payer OTHER, SELFPAY ==
--- NOTE | ~2025-01-12 | XR_ITS ---
EXAMINATION: XR chest 2V DATE: 01/12/2025 08:29 INDICATION: Upper chest tightness TECHNIQUE: PA and lateral views of the chest were obtained. COMPARISON: Chest radiograph and CT dated 11/17/2024 FINDINGS: The lungs are clear with no focal airspace opacities, pulmonary edema, pleural effusion or pneumothor ax. The cardiomediastinal silhouette is normal. Severe right glenohumeral osteoarthritis. IMPRESSION: 1. No acute cardiopulmonary disease. Reviewed, dictated and finalized at location A.
[2025-01-12 07:56] VITALS: BP 183/105; PULSE 83; RESP 20; TEMP 36.5; O2SAT 98
--- NOTE | 2025-01-12 08:17 | ECG_ITS ---
Test Date: 2025-01-12 08:22:57 Measurements Intervals [place] Rate: 77 P: 70 ID: [id number] QRS: 46 QRSD: 93 T: 35 QT: 368 QTc: 417 Interpretive Statements SINUS RHYTHM WITH SINUS ARRHYTHMIA BASELINE ARTIFACT- I, III NORMAL ECG Compared to ECG 11/17/2024 08:08:01 No significant changes Electronically Signed On 01-12-2025 10:07:07 CDT by Tito Villatoro D.O.
--- OUTSIDE RECORDS SUMMARY | 2025-01-12 08:28 | XMS_ITS | CONTINUITY OF CARE DOCUMENT ---
Author Name elenamikyeric Address Unknown Organization [facility] Address [address] [place] [address] [address] [place] [address] Phone [phone] Care Team Providers Care Supervisor Lace Tearing Name Role Phone Farzad King MD Unavailable [phone] EMELYN PURCELL MD Unavailable [phone] EMELYN PURCELL MD Unavailable [phone] INSURANCE PROVIDERS Payer name Policy type / Coverage type [place] red constitution party ID [facility] [id number] Other [id number]
[2025-01-12 08:31] LABS: Basophils Absolute Auto 0.1 K/mm3 (0.0-0.1); Basophils Percent Auto 0.8 % (0.2-1.2); Eosinophils Absolute Auto 0.5 K/mm3 (0-0.3); Eosinophils Percent Auto 7.2 % (0-4.4); Hemoglobin 15.2 g/dL (14.0-18.0); Immature Granulocyte Absolute 0.07 K/mm3 (0.00-0.031); Immature Granulocyte Percent A 1.1 % (0-0.5); Lymphocytes Absolute Auto 2.03 K/mm3 (0.9-3.2); Lymphocytes Percent Auto 32.6 % (18.3-44.2); Mean Corpuscular HGB Conc 34.5 g/dl (32-36); Mean Corpuscular Hemoglobin 27.6 pg (26-34); Mean Platelet Volume 10.3 fl (7.4-10.4); Monocytes Absolute Auto 0.7 K/mm3 (0.1-0.6); Monocytes Percent Auto 11.3 % (2.6-8.5); Neutrophils Absolute Auto 2.9 K/mm3 (1.3-6.7); Platelet Count Result 222 k/mm3 (150-375); Red Cell Distribution Width 14.2 % (11.5-14.5); White Blood Count 6.2 K/mm3 (4.5-10.0)
[2025-01-12 08:41] LABS: Alanine Aminotransferase 59 U/L (6-50); Albumin Level 4.1 g/dL (3.5-5.1); Alkaline Phosphatase 61 U/L (38-126); Anion Gap 9 mmol/L (4-12); Aspartate Amino Transferase 50 U/L (17-59); Bilirubin,Total 0.6 mg/dL (0.2-1.3); Blood Urea Nitrogen 15 mg/dL (9-20); Calcium 8.6 mg/dL (8.4-10.2); Carbon Dioxide 24 mmol/L (22-30); Chloride 107 mmol/L (98-107); Estimated CRCL calculation 128 ml/min; Estimated Glomerular Filt Rate > 60; Glucose 111 mg/dL (65-110); Lipase 240 U/L (23-300); Potassium 4.1 mmol/L (3.4-5.0); Sodium 140 mmol/L (137-145)
[2025-01-12 08:48] LABS: Prothrombin Time 12.9 Seconds (11.1-14.7)
[2025-01-12 08:49] LABS: Partial Thromboplastin Time 30.5 Seconds (22.3-36.8)
[2025-01-12 08:52] LABS: Troponin I 0.024 ng/mL (0.000-0.034)
[2025-01-12 09:01] LABS: D Dimer < 0.27 ug/mL (<0.48)
[2025-01-12 09:03] VITALS: BP 135/92; PULSE 80; RESP 18; TEMP 36.8; O2SAT 96
[2025-01-12 09:09] LABS: Magnesium 1.9 mg/dL (1.6-2.3)
[2025-01-12 09:19] LABS: NT Pro B Type Natriuretic Pept < 20 pg/mL (19.9-100)
[2025-01-12 10:00] VITALS: BP 133/78; PULSE 89; RESP 16; TEMP 36.6; O2SAT 99
--- NOTE | 2025-01-12 10:13 | ED_ITS ---
HPI - General Adult General Chief complaint: Anxiety Stated complaint: anxiety? Time Seen by Provider: 01/12/25 08:09 History of Present Illness HPI narrative: Patient 32-year-old gentleman who presents emergency department with chief complaint of possible panic attack. Patient reports he does have history of anxiety but does report that he has had some elevated cardiac markers in the past patient states that today he felt short of breath and felt as though the wall was caving in on him the patient states he had no diaphoresis reports no radiation of the discomfort the patient states he decided to come to the emergency department to be checked out just in case it was not a panic attack. Related Data Home Medications ?Medication ?Instructions ?Recorded ?Confirmed ?Last Taken ?Type aspirin 325 mg capsule 325 mg PO DAILY 11/04/24 12/15/24 12/15/24 History Allergies Allergy/AdvReac Type Severity Reaction Status Date / Time No Known Allergies Allergy Verified 01/12/25 09:05 Review of Systems 2 Review of Systems: A 10 system review of systems was completed on the patient and is negative except for what is stated in the HPI. Nursing and ancillary documentation was reviewed. [facility] Past Medical History Medical History Seizure disorder Social History Social History Social History: Previously lived in [place] Smoking status: Former smoker Tobacco type: e-cigarettes/vaping Smoking end date: 08/26/24 Additional smoking assessment comments: 1 cartridge Alcohol intake: never Substance use: never Substance use type: does not use Do You Feel Safe in your Home?: Yes Lack of Transportation: No Lack of Food: Never True Current Housing: I Have Housing Concerned About Future Housing: No Difficulty Paying Gas/Electric Bills: No Difficulty Paying for Meds: No Currently Unemployed: No Education: Associate Degree Difficulty w/ Childcare or Family Care: No Occupation/Education: occupation 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 HEAD: Normocephalic, atraumatic. EYES: PERRLA and EOMI. ENT: Nares clear, no rhinorrhea or epistaxis. Mucous membranes moist. NECK: Supple. CHEST: Clear to auscultation. No respiratory distress. HEART: Regular rate and rhythm. No murmur heard. Normal peripheral pulses. ABDOMEN: Soft, nontender, nondistended, normal active bowel sounds. EXTREMITIES: Normal range of motion. No edema. SKIN: Warm, dry, no rash. NEURO: No focal deficits. Alert and oriented x3. PSYCH: Normal mood and affect. Course Vital Signs Vital signs: Vital Signs Temperature 36.5 C 01/12/25 07:56 Pulse Rate 83 01/12/25 07:56 Respiratory Rate 20 01/12/25 07:56 Blood Pressure 183/105 H 01/12/25 07:56 Pulse Oximetry 98 01/12/25 07:56 Oxygen Delivery Room Air 01/12/25 07:56 Temperature 36.6 C 01/12/25 10:00 Pulse Rate 89 01/12/25 11:00 Respiratory Rate 16 01/12/25 11:00 Blood Pressure 133/77 01/12/25 11:00 Pulse Oximetry 100 01/12/25 11:00 Oxygen Delivery Room Air 01/12/25 07:56 Medical Decision Making [facility] Narrative Medical decision making narrative: Differential diagnosis includes ACS, dysrhythmia, panic attack, EKG showed no acute ischemic changes Chest x-ray showed no focal findings Initial from was 0.024 repeat troponin was 0.024 CBC was within normal limits The patient is feeling much better at this time Vital Signs Vital Signs: Vital Signs Temperature 36.5 C 01/12/25 07:56 Pulse Rate 83 01/12/25 07:56 Respiratory Rate 20 01/12/25 07:56 Blood Pressure 183/105 H 01/12/25 07:56 Pulse Oximetry 98 01/12/25 07:56 Oxygen Delivery Room Air 01/12/25 07:56 Temperature 36.6 C 01/12/25 10:00 Pulse Rate 89 01/12/25 11:00 Respiratory Rate 16 01/12/25 11:00 Blood Pressure 133/77 01/12/25 11:00 Pulse Oximetry 100 01/12/25 11:00 Oxygen Delivery Room Air 01/12/25 07:56 Lab Data 01/12/25 08:26 01/12/25 08:26 Labs: Lab Results 01/12/25 01/12/25 Range/Units 08:26 11:00 WBC 6.2 (4.5-10.0) K/mm3 RBC 5.50 (4.6-6.20) M/mm3 Hgb 15.2 (14.0-18.0) g/dL Hct 44.0 (42.0-52.0) % MCV 80.0 (80-100) fl MCH 27.6 (26-34) pg MCHC 34.5 (32-36) g/dl RDW 14.2 (11.5-14.5) % Plt Count 222 (150-375) k/mm3 MPV 10.3 (7.4-10.4) fl Immature Gran % (Auto) 1.1 H (0-0.5) % Neut % (Auto) 47.0 (45.5-73.1) % Lymph % (Auto) 32.6 (18.3-44.2) % [place] % (Auto) 11.3 H (2.6-8.5) % Eos % (Auto) 7.2 H (0-4.4) % Baso % (Auto) 0.8 (0.2-1.2) % Lymph # (Auto) 2.03 (0.9-3.2) K/mm3 [place] # (Auto) 0.7 H (0.1-0.6) K/mm3 Eos # (Auto) 0.5 H (0-0.3) K/mm3 Baso # (Auto) 0.1 (0.0-0.1) K/mm3 Abs Immat Gran (auto) 0.07 H (0.00-0.031) K/mm3 Absolute Neuts (auto) 2.9 (1.3-6.7) K/mm3 Absolute Nucleated RBC 0.000 (0.0-0.012) K/mm3 Nucleated RBC % 0.0 (0.0-0.2) % PT 12.9 (11.1-14.7) Seconds INR 1.0 APTT 30.5 (22.3-36.8) Seconds D-Dimer < 0.27 (<0.48) ug/mL Sodium 140 (137-145) mmol/L Potassium 4.1 (3.4-5.0) mmol/L Chloride 107 (98-107) mmol/L Carbon Dioxide 24 (22-30) mmol/L Anion Gap 9 (4-12) mmol/L BUN 15 (9-20) mg/dL Creatinine 1.12 (0.7-1.3) mg/dL Estim Creat Clear Calc 128 ml/min Estimated GFR > 60 (59 - ) Glucose 111 H (65-110) mg/dL Calcium 8.6 (8.4-10.2) mg/dL Magnesium 1.9 (1.6-2.3) mg/dL Total Bilirubin 0.6 (0.2-1.3) mg/dL AST 50 (17-59) U/L ALT 59 H (6-50) U/L Alkaline Phosphatase 61 (38-126) U/L Troponin I 0.024 0.024 (0.000-0.034) ng/mL NT-Pro-B Natriuret Pep < 20 (19.9-100) pg/mL Total Protein 7.0 (6.3-8.2) g/dL Albumin 4.1 (3.5-5.1) g/dL Lipase 240 (23-300) U/L Discharge Plan Discharge Clinical Impression: Atypical chest pain Patient Disposition: Home Condition: Stable Instructions: Antibiotic Form, Chest Pain (ED), Anxiety (ED) Patient Language: Palauan Prescriptions: No Action aspirin 325 mg capsule 325 mg PO DAILY levetiracetam [Keppra] 500 mg tablet 500 mg PO BID Qty: 60 0RF Patient Comments: Pt states he does not take as prescribed, only takes one tab daily at night levetiracetam [Keppra] 500 mg tablet 500 mg PO BID 30 Days Qty: 60 0RF Follow-up/Referrals: Marty,Harriet Taylor MD [Primary Care Provider] - Time of Disposition: 11:49
[2025-01-12 11:00] VITALS: BP 133/77; PULSE 89; RESP 16; O2SAT 100
--- NOTE | 2025-01-12 11:02 | ECG_ITS ---
Test Date: 2025-01-12 11:06:31 Measurements Intervals [place] Rate: 67 P: 51 HI: 158 QRS: 43 QRSD: 92 T: 30 QT: 389 QTc: 413 Interpretive Statements SINUS RHYTHM MINIMAL Q WAVES- INFERIOR LEADS BASELINE ARTIFACT- I, II, III BORDERLINE ECG Compared to ECG 01/12/2025 08:22:57 NO SIGNIFICANT CHANGE Electronically Signed On 01-12-2025 14:22:02 CDT by Tito Villatoro D.O.
[2025-01-12 11:30] LABS: Troponin I 0.024 ng/mL (0.000-0.034)
[2025-01-12 12:13] VITALS: BP 133/53; PULSE 66; RESP 20; TEMP 36.6; O2SAT 98
== END 2025-01-12 12:13 | disposition home or self-care (01) ==
PROVIDERS: Emergency Provider Emergency Medicine; PCP Student in an Organized Health Care Education/Training Program
DX: R07.89 Other chest pain (principal); Z79.82 Long term (current) use of aspirin
CPT/HCPCS: 36415; 71046; 80053; 83690; 83735; 83880; 84484; 85025; 85380; 85610; 85730; 93005; 99284

== ENCOUNTER 2025-07-12 11:58 | Emergency (ER) | payer OTHER, SELFPAY ==
[2025-07-12] VITALS (9 sets, daily range): BP systolic 129–150; BP diastolic 83–118; PULSE 63–116; RESP 15–20; TEMP 36.8; O2SAT 65–99
--- NOTE | ~2025-07-12 | XR_ITS ---
Examination: XR chest 2V Clinical History: chest pain Comparison: CTA chest 11/17/2024 Technique: PA and Lateral Findings: Cardiomediastinal silhouette normal size and configuration. Lungs clear. No acute bony abnormality. Chronic mild superior endplate compression fracture T4, T6. IMPRESSION: 1. No acute cardiopulmonary findings. Reviewed, dictated and finalized at location R.
--- NOTE | 2025-07-12 12:00 | ECG_ITS ---
Test Date: 2025-07-12 12:03:28 Measurements Intervals [place] Rate: 98 P: 53 IN: 150 QRS: 9 QRSD: 90 T: 37 QT: 330 QTc: 422 Interpretive Statements SINUS RHYTHM DELAYED PRECORDIAL R/S TRANSITION BASELINE ARTIFACT- I, II, III, AVR, AVL, AVF, V2, V4-V6 BORDERLINE ECG Compared to ECG 01/12/2025 11:06:31 No significant changes Electronically Signed On 07-12-2025 15:25:46 CDT by Tito Villatoro D.O.
[2025-07-12 12:25] LABS: Hematocrit 47.0 % (42.0-52.0); Hemoglobin 16.2 g/dL (14.0-18.0); Immature Granulocyte Percent A 0.9 % (0-0.5); Lymphocytes Absolute Auto 1.91 K/mm3 (0.9-3.2); Mean Corpuscular HGB Conc 34.5 g/dl (32-36); Mean Corpuscular Hemoglobin 27.3 pg (26-34); Mean Corpuscular Volume 79.3 fl (80-100); Nucleated Red Blood Cells Absolute Auto 0.000 K/mm3 (0.0-0.012); Nucleated Red Blood Cells Perc 0.0 % (0.0-0.2); Platelet Count Result 260 k/mm3 (150-375); Red Blood Count 5.93 M/mm3 (4.6-6.20); White Blood Count 5.6 K/mm3 (4.5-10.0)
--- OUTSIDE RECORDS SUMMARY | 2025-07-12 12:37 | XMS_ITS | Patient Health Record ---
Author Organization [facility] Address [address] [place], [place] [id number] Care Team Providers Care President And Cmo Name Role Phone SAMSON DUNHAM Primary Care Provider Reason For Referral No Information Problems Problem Type SNOMED Code ICD Code Onset Dates Problem Status W/U Status Risk Notes Problem Carpal tunnel syndrome (73574833) Carpal Tunnel Syndrome (G56.00) 09/25/2019 Inactive confirmed Plan Of Treatment No Information Insurance Providers Payer Name Payer Address Payer Phone Subscriber Number Group Number Insured Name Patient Relationship to Insured Coverage Start Date Coverage End Date [facility] [address] [address] [place] [phone] [id number] HERRERA ALARCON Self - patient is the insured
[2025-07-12 12:39] LABS: Alanine Aminotransferase 75 U/L (6-50); Albumin Level 4.4 g/dL (3.5-5.1); Alkaline Phosphatase 65 U/L (38-126); Anion Gap 8 mmol/L (4-12); Aspartate Amino Transferase 57 U/L (17-59); Bilirubin,Total 0.6 mg/dL (0.2-1.3); Blood Urea Nitrogen 14 mg/dL (9-20); Calcium 8.8 mg/dL (8.4-10.2); Carbon Dioxide 24 mmol/L (22-30); Chloride 105 mmol/L (98-107); Estimated CRCL calculation 124 ml/min; Estimated Glomerular Filt Rate > 60; Glucose 123 mg/dL (65-110); Lipase 220 U/L (23-300); Potassium 4.2 mmol/L (3.4-5.0); Sodium 137 mmol/L (137-145); Total Protein 8.3 g/dL (6.3-8.2)
[2025-07-12 12:49] LABS: Troponin I 0.025 ng/mL (0.000-0.034)
[2025-07-12 12:56] LABS: INR 1.0; Prothrombin Time 12.9 Seconds (11.1-14.7)
[2025-07-12 12:57] LABS: Partial Thromboplastin Time 30.8 Seconds (22.3-36.8)
--- NOTE | 2025-07-12 13:56 | ED_ITS ---
HPI - General Adult General Chief complaint: Chest Pain Stated complaint: chest tightness Time Seen by Provider: 07/12/25 12:26 History of Present Illness HPI narrative: Ignacio Bahena is a 35-year-old male who presents today with complaints of waking up today with chest tightness across his whole chest that started about 11:00 a.m. was about an hour. He states he has a history of sleep apnea he felt like he was having issues with that last night. He is ordered a CPAP machine but has not been able to get it yet. He denies any chest tightness or pain at this time, denies any shortness of breath. Related Data Home Medications ?Medication ?Instructions ?Recorded ?Confirmed ?Last Taken ?Type amlodipine 5 mg tablet 5 mg PO DAILY 02/14/25 Unkn own History Allergies Allergy/AdvReac Type Severity Reaction Status Date / Time No Known Allergies Allergy Verified 02/14/25 13:23 Review of Systems 2 Review of Systems: All systems reviewed & are unremarkable except as noted in HPI and below PMFSH Past Medical History Medical History Hypertension Seizure disorder Social History Social History Social History: Previously lived in [place] Smoking status: Former smoker Tobacco type: e-cigarettes/vaping Smoking end date: 08/26/24 Additional smoking assessment comments: 1 cartridge Alcohol intake: never Substance use: never Substance use type: does not use Do You Feel Safe in your Home?: Yes Lack of Transportation: No Lack of Food: Never True Current Housing: I Have Housing Concerned About Future Housing: No Difficulty Paying Gas/Electric Bills: No Difficulty Paying for Meds: No Currently Unemployed: No Education: Associate Degree Difficulty w/ Childcare or Family Care: No Occupation/Education: occupation Additional occupation/education comments: 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 HEAD: Normocephalic, atraumatic. EYES: PERRLA and EOMI. ENT: Nares clear, no rhinorrhea or epistaxis. Mucous membranes moist. Oropharynx without tonsillar hypertrophy exudate or other lesions. NECK: Supple. No adenopathy or masses. No carotid bruits or JVD CHEST: Clear to auscultation. No respiratory distress. No wheezes rales or rhonchi HEART: Regular rate and rhythm. No murmur heard. Normal peripheral pulses. ABDOMEN: Soft, nontender, nondistended, normal active bowel sounds. EXTREMITIES: Normal range of motion. No edema. SKIN: Warm, dry, no rash. NEURO: No focal deficits. Alert and oriented x3. PSYCH: Normal mood and affect. Course Vital Signs Vital signs: Vital Signs Temperature 36.8 C 07/12/25 12:01 Pulse Rate 116 H 07/12/25 12:01 Respiratory Rate 18 07/12/25 12:01 Blood Pressure 150/93 H 07/12/25 12:01 Pulse Oximetry 98 07/12/25 12:01 Temperature 36.8 C 07/12/25 12:01 Pulse Rate 65 07/12/25 16:58 Respiratory Rate 20 07/12/25 16:58 Blood Pressure 143/118 H 07/12/25 16:58 Pulse Oximetry 65 L 07/12/25 16:58 Oxygen Delivery Room Air 07/12/25 12:30 Medical Decision Making [facility] Narrative Medical decision making narrative: 35-year-old with past medical history of seizures and hypertension sleep apnea who presents today with reports of feeling like he had an apneic episode last night and when he got up this morning he had chest tightness across his chest I continue for a full hour and is now subsided. He states that the pain was nonradiating and he does show generalized tired and generalized weak no shortness of breath. concern for : Cardiac ischemia, anemia, URI, pneumonia, GERD, Plan to check cardiac work up currently not having any pain EKG sinus rhythm rate 98 CBC-no leukocytosis, hemodynamically stable, CMP glucose 123, ALT 75, troponin 1- Negative Troponin 2- Negative Lipase 220 chest XR: No acute cardiopulmonary findings Heart score of 2 Patient has continued to be without any chest pain while here, denies SOB, denies any new or worsening symptoms being. Patient is updated on his lab EKG and x-ray results. Patient will be discharged home with follow-up with his primary care doctor also encouraged patient to continue to get this CPAP to help with sleep apnea. Strict return precautions provided if he does develop any new or worsening symptoms such as chest pain or shortness of breath. Patient agrees with this plan feels comfortable with going home at this time denies anything further. Medical Records Medical records reviewed: Yes I reviewed the external patient's medical records. Vital Signs Vital Signs: Vital Signs Temperature 36.8 C 07/12/25 12:01 Pulse Rate 116 H 07/12/25 12:01 Respiratory Rate 18 07/12/25 12:01 Blood Pressure 150/93 H 07/12/25 12:01 Pulse Oximetry 98 07/12/25 12:01 Temperature 36.8 C 07/12/25 12:01 Pulse Rate 65 07/12/25 16:58 Respiratory Rate 20 07/12/25 16:58 Blood Pressure 143/118 H 07/12/25 16:58 Pulse Oximetry 65 L 07/12/25 16:58 Oxygen Delivery Room Air 07/12/25 12:30 Vitals reviewed Lab Data Lab results reviewed: Yes I reviewed the patient's lab results. 07/12/25 12:19 07/12/25 12:19 Labs: Lab Results 07/12/25 07/12/25 Range/Units 12:19 15:09 WBC 5.6 (4.5-10.0) K/mm3 RBC 5.93 (4.6-6.20) M/mm3 Hgb 16.2 (14.0-18.0) g/dL Hct 47.0 (42.0-52.0) % MCV 79.3 L (80-100) fl MCH 27.3 (26-34) pg MCHC 34.5 (32-36) g/dl RDW 14.1 (11.5-14.5) % Plt Count 260 (150-375) k/mm3 MPV 9.7 (7.4-10.4) fl Immature Gran % (Auto) 0.9 H (0-0.5) % Neut % (Auto) 50.3 (45.5-73.1) % Lymph % (Auto) 34.0 (18.3-44.2) % [place] % (Auto) 9.1 H (2.6-8.5) % Eos % (Auto) 4.6 H (0-4.4) % Baso % (Auto) 1.1 (0.2-1.2) % Lymph # (Auto) 1.91 (0.9-3.2) K/mm3 [place] # (Auto) 0.5 (0.1-0.6) K/mm3 Eos # (Auto) 0.3 (0-0.3) K/mm3 Baso # (Auto) 0.1 (0.0-0.1) K/mm3 Abs Immat Gran (auto) 0.05 H (0.00-0.031) K/mm3 Absolute Neuts (auto) 2.8 (1.3-6.7) K/mm3 Absolute Nucleated RBC 0.000 (0.0-0.012) K/mm3 Nucleated RBC % 0.0 (0.0-0.2) % PT 12.9 (11.1-14.7) Seconds INR 1.0 APTT 30.8 (22.3-36.8) Seconds Sodium 137 (137-145) mmol/L Potassium 4.2 (3.4-5.0) mmol/L Chloride 105 (98-107) mmol/L Carbon Dioxide 24 (22-30) mmol/L Anion Gap 8 (4-12) mmol/L BUN 14 (9-20) mg/dL Creatinine 1.15 (0.7-1.3) mg/dL Estim Creat Clear Calc 124 ml/min Estimated GFR > 60 (59 - ) Glucose 123 H (65-110) mg/dL Calcium 8.8 (8.4-10.2) mg/dL Total Bilirubin 0.6 (0.2-1.3) mg/dL AST 57 (17-59) U/L ALT 75 H (6-50) U/L Alkaline Phosphatase 65 (38-126) U/L Troponin I 0.025 0.022 (0.000-0.034) ng/mL Total Protein 8.3 H (6.3-8.2) g/dL Albumin 4.4 (3.5-5.1) g/dL Lipase 220 (23-300) U/L Imaging Data Radiologist's impression: Impressions Chest X-Ray 07/12/25 12:52 IMPRESSION: 1. No acute cardiopulmonary findings. ECG Data EKG #1: ECG completion date: 07/12/25 ECG completion time: 12:03 Prior ECG tracings: available for review Interpretation: Rate 98 WY 150 QRSd 90 QT 330 QTc 422 --[place]-- P 53 QRS 9 T 37 SINUS RHYTHM Compared to ECG 01/12/2025 11:06:31 No significant changes Discharge Plan Discharge Clinical Impression: Atypical chest pain Patient Disposition: Home Condition: Stable Instructions: Antibiotic Form, Chest Wall Pain (ED) Additional Instructions: Please follow up with your PCP in the next week, follow up regarding your CPAP machine to see if it is ready to start using. If you develop any new or worsening symptoms, chest pain, shortness of breath as always, return to the ER. Patient Language: Greek Prescriptions: No Action amlodipine 5 mg tablet 5 mg PO DAILY levetiracetam [Keppra XR] 750 mg tablet extended release 24 hr 1,500 mg PO . at bedtime Qty: 90 12RF Rx Instructions: increase to 3 tablets after 2 weeks to be taken at night Follow-up/Referrals: PHYSICIAN,RESEARCH AFFILIATE [Primary Care Provider, Internal Medicine] Time of Disposition: 16:07 Quality HEART score for chest pain patients History: slightly suspicious ECG: non specific repolarization disturbance/LBTB/PM Age: < or = to 45 years Risk factors: 1 or 2 risk factors Troponin: < or = to 1x normal limit Heart score: 2
[2025-07-12 15:46] LABS: Troponin I 0.022 ng/mL (0.000-0.034)
== END 2025-07-12 17:00 | disposition home or self-care (01) ==
PROVIDERS: Emergency Medicine; Emergency Provider Nurse Practitioner Family
DX: R07.89 Other chest pain (principal); G47.30 Sleep apnea, unspecified; G40.909 Epilepsy, unspecified, not intractable, without status epilepticus; I10 Essential (primary) hypertension; Z87.891 Personal history of nicotine dependence
CPT/HCPCS: 36415; 71046; 80053; 83690; 84484; 85025; 85610; 85730; 93005; 99284